=== PATIENT | male | born 1940 | race Caucasian/White ===

== ENCOUNTER 2022-07-24 22:12 | Inpatient (IN) | payer MEDICARE ==
--- NOTE | 2022-07-24 22:31 | ED ---
General Adult HPI - General Chief complaint: Chest Pain Stated complaint: chest pain Time Seen by Provider: 07/24/22 22:23 Source: patient, EMS, RN notes reviewed Mode of arrival: EMS Limitations: no limitations - History of Present Illness Initial comments: 81-year-old male with past medical history of myocardial infarction and cardiac stent placement presents the emergency department via EMS with a chief complaint of chest pain. Patient reports chest pain that started at approximately 9 PM at dinnertime. Patient reports that he was eating beef tips at the time that the pain started. He describes the chest pain as a dull ache. It does not radiate anywhere else. It is not provoked with movement. He reports he took 3 nitroglycerin tabs prior to arrival which relieved his pain. She denies accompanying symptoms of diaphoresis, nausea, vomiting, shortness of breath, cough, dyspnea. Denies anticoagulant use - Related Data Allergies Allergy/AdvReac Type Severity Reaction Status Date / Time acetaminophen [From Vicodin] AdvReac Nausea & Verified 07/24/22 22:29 Vomiting codeine AdvReac Nausea & Verified 07/24/22 22:29 Vomiting hydrocodone [From Vicodin] AdvReac Nausea & Verified 07/24/22 22:29 Vomiting ibuprofen [From Motrin] AdvReac Nausea & Verified 07/24/22 22:29 Vomiting morphine AdvReac Nausea & Verified 07/24/22 22:29 Vomiting & Diarrhea propoxyphene [From Darvon] AdvReac Nausea & Verified 07/24/22 22:29 Vomiting Review of Systems ROS Statement: Those systems with pertinent positive or pertinent negative responses have been documented in the HPI. ROS Other: All systems not noted in ROS Statement are negative. Past Medical History Past Medical History: Coronary Artery Disease (CAD), Chest Pain / Angina History of Any Multi-Drug Resistant Organisms: None Reported Past Surgical History: Heart Catheterization With Stent Additional Past Surgical History / Comment(s): hx of 5 stents placed Past Psychological History: No Psychological Hx Reported Smoking Status: Former smoker Past Alcohol Use History: Daily Past Drug Use History: None Reported - Past Family History Mother History Unknown: Yes Father Family Medical History: No Reported History General Exam - General Exam Comments Initial Comments: General: Alert, in no acute distress Head: atraumatic normocephalic. Eyes PERRL, EOMI intact, mucous membranes moist Respiratory: Lungs clear to auscultation bilaterally Cardiovascular: Heart rate regular rate and rhythm Abdominal: Soft without guarding or rebound Extremities: Normal inspection with full range of motion and normal capillary refill Neuroogic: alert and oriented 3, CN II-XII intact, able to ambulate with steady gait Skin: warm dry and intact with normal color Limitations: no limitations Course Vital Signs 07/24/22 07/24/22 07/25/22 22:15 23:23 01:35 Temperature 98.8 F Pulse Rate 87 82 72 Respiratory 18 18 18 Rate Blood Pressure 162/85 171/82 125/67 O2 Sat by Pulse 99 99 97 Oximetry - Reevaluation(s) Reevaluation #1: 07/24/22 23:35 Should reevaluated. Patient reports chest pain that is tight at rest. Repeat EKG ordered. Reevaluation #2: 07/24/22 23:44 Interpreted the following: BP EKG performed at 23:36 rate 84 bpm normal sinus rhythm with short AR interval AR interval 108, QRS duration 109, QT/QTc 367/408 Reevaluation #3: 07/25/22 00:30 Discuss with the [facility] who agrees and accepts the patient for admission EKG Findings - EKG Comments: EKG Findings:: Initial EKG performed at 22:36 79 bpm normal sinus rhythm AR interval 124, QRS duration 96, QT/QTc 367/402 Medical Decision Making - Medical Decision Making Was pt. sent in by a medical professional or institution ([facility], [facility], urgent care, hospital, or alf...) When possible be specific @ -[No] Did you speak to anyone other than the patient for history (EMS, parent, family, police, friend...)? What history was obtained from this source @ -[No] Did you review nursing and triage notes (agree or disagree)? Why? @ -[I reviewed and agree with nursing and triage notes] Were old charts reviewed (outside hosp., previous admission, EMS record, old EKG, old radiological studies, urgent care reports/EKG's, alf records)? Report findings @ -[No old charts were reviewed] Differential Diagnosis (chest pain, altered mental status, abdominal pain women, abdominal pain men, vaginal bleeding, weakness, fever, dyspnea, syncope, headache, dizziness, GI bleed, back pain, seizure, CVA, palpatations, mental health, musculoskeletal)? @ -[not applicable] EKG interpreted by me (3pts min.). @ -[As above] X-rays interpreted by me (1pt min.). @ No evidence for acute intrapleural process CT interpreted by me (1pt min.). @ -[None done] U/S interpreted by me (1pt. min.). @ -[None done] What testing was considered but not performed or refused? (CT, X-rays, U/S, labs)? Why? @ -[None] What meds were considered but not given or refused? Why? @ -[None] Did you discuss the management of the patient with other professionals (professionals i.e. , PA, [employer], lab, RT, psych nurse, protective services social worker, talent manager, teacher, police officer crime prevention, case folder)? Give summary @ -[No] Was smoking cessation discussed for >3mins.? @ -[No] Was critical care preformed (if so, how long)? @ -[No] Were there social determinants of health that impacted care today? How? (Homelessness, low income, unemployed, alcoholism, drug addiction, transportation, low edu. Level, literacy, decrease access to med. care, penitentiary, rehab)? @ -[No] Was there de-escalation of care discussed even if they declined (Discuss DNR or withdrawal of care, Hospice)? DNR status @ -[No] What co-morbidities impacted this encounter? (DM, HTN, Smoking, COPD, CAD, Cancer, CVA, ARF, Chemo, Hep., AIDS, mental health diagnosis, sleep apnea, morbid obesity)? @ -[None] Was patient admitted / discharged? Hospital course, mention meds given and route, prescriptions, significant lab abnormalities, going to OR and other pertinent info. @ -Admission. This is a 81-year-old male who presents to the emergency department with chest pain. Patient had a thorough history and physical exam performed on the ED. Heart rate regular rate and rhythm, lungs clear to auscultation bilaterally, abdomen soft and nontender. Upon initial history and physical patient reports no chest pain however particularly 1 hour i nto the course of the ED patient reports persistent chest pain that he is experiencing at rest. Patient had nitro which made it worse. Patient had lab work and imaging performed which was essentially unremarkable initial troponin and secondary troponin drawn were negative. Despite negative cardiac workup due to the nature of the patient's history and current symptoms patient will be admitted for further observation with consult to cardiology. Case discussed with GUSTABO Brewer who agrees with plan of care. Undiagnosed new problem with uncertain prognosis? @ -[No] Drug Therapy requiring intensive monitoring for toxicity (Heparin, Nitro, Insulin, Cardizem)? @ -[No] Were any procedures done? @ -[No] Diagnosis/symptom? @ -Chest Pain - Acute Coronary Syndrome Acute, or Chronic, or Acute on Chronic? @ -Acute Uncomplicated (without systemic symptoms) or Complicated (systemic symptoms)? @ -Uncomplicated Side effects of treatment? @ -[No] Exacerbation, Progression, or Severe Exacerbation? @ -[No] Poses a threat to life or bodily function? How? (Chest pain, USA, ID, pneumonia, PE, COPD, DKA, ARF, appy, cholecystitis, CVA, Diverticulitis, Homicidal, Suicidal, threat to staff... and all critical care pts) @ -High likelihood - Lab Data Result diagrams: 07/24/22 23:03 07/24/22 23:03 Lab Results 07/24/22 07/24/22 07/24/22 Range/Units 00:00 00:00 23:03 WBC 11.6 H 12.3 H (3.8-10.6) k/uL RBC 3.32 L 3.47 L (4.30-5.90) m/uL Hgb 11.5 L 11.8 L (13.0-17.5) gm/dL Hct 34.5 L 35.3 L (39.0-53.0) % MCV 103.9 H 101.6 H (80.0-100.0) fL MCH 34.7 34.0 (25.0-35.0) pg MCHC 33.4 33.4 (31.0-37.0) g/dL RDW 12.4 12.5 (11.5-15.5) % Plt Count 185 184 (150-450) k/uL MPV 8.7 9.0 Neutrophils % 85 84 % Lymphocytes % 8 7 % Monocytes % 6 7 % Eosinophils % 1 1 % Basophils % 0 0 % Neutrophils # 9.8 H 10.3 H (1.3-7.7) k/uL Lymphocytes # 0.9 L 0.8 L (1.0-4.8) k/uL Monocytes # 0.7 0.9 (0-1.0) k/uL Eosinophils # 0.1 0.2 (0-0.7) k/uL Basophils # 0.0 0.0 (0-0.2) k/uL Macrocytosis Slight PT 11.7 (9.0-12.0) sec INR 1.1 (<1.2) APTT 23.6 (22.0-30.0) sec Sodium (137-145) mmol/L Potassium (3.5-5.1) mmol/L Chloride (98-107) mmol/L Carbon Dioxide (22-30) mmol/L Anion Gap mmol/L BUN (9-20) mg/dL Creatinine (0.66-1.25) mg/dL Est GFR (CKD-EPI)AfAm (>60 ml/min/1.73 sqM) Est GFR (CKD-EPI)NonAf (>60 ml/min/1.73 sqM) Glucose (74-99) mg/dL Calcium (8.4-10.2) mg/dL Magnesium (1.6-2.3) mg/dL Total Bilirubin (0.2-1.3) mg/dL AST (17-59) U/L ALT (4-49) U/L Alkaline Phosphatase (38-126) U/L Troponin I (0.000-0.034) ng/mL Total Protein (6.3-8.2) g/dL Albumin (3.5-5.0) g/dL 07/24/22 07/24/22 07/24/22 Range/Units 23:03 23:03 23:03 WBC (3.8-10.6) k/uL RBC (4.30-5.90) m/uL Hgb (13.0-17.5) gm/dL Hct (39.0-53.0) % MCV (80.0-100.0) fL MCH (25.0-35.0) pg MCHC (31.0-37.0) g/dL RDW (11.5-15.5) % Plt Count (150-450) k/uL MPV Neutrophils % % Lymphocytes % % Monocytes % % Eosinophils % % Basophils % % Neutrophils # (1.3-7.7) k/uL Lymphocytes # (1.0-4.8) k/uL Monocytes # (0-1.0) k/uL Eosinophils # (0-0.7) k/uL Basophils # (0-0.2) k/uL Macrocytosis PT 11.7 (9.0-12.0) sec INR 1.1 (<1.2) APTT 21.0 L (22.0-30.0) sec Sodium 135 L (137-145) mmol/L Potassium 3.5 (3.5-5.1) mmol/L Chloride 106 (98-107) mmol/L Carbon Dioxide 23 (22-30) mmol/L Anion Gap 6 mmol/L BUN 15 (9-20) mg/dL Creatinine 0.96 (0.66-1.25) mg/dL Est GFR (CKD-EPI)AfAm 87 (>60 ml/min/1.73 sqM) Est GFR (CKD-EPI)NonAf 75 (>60 ml/min/1.73 sqM) Glucose 126 H (74-99) mg/dL Calcium 8.4 (8.4-10.2) mg/dL Magnesium 1.7 (1.6-2.3) mg/dL Total Bilirubin 0.6 (0.2-1.3) mg/dL AST 23 (17-59) U/L ALT 20 (4-49) U/L Alkaline Phosphatase 60 (38-126) U/L Troponin I <0.012 (0.000-0.034) ng/mL Total Protein 6.0 L (6.3-8.2) g/dL Albumin 3.6 (3.5-5.0) g/dL 07/25/22 Range/Units 00:21 WBC (3.8-10.6) k/uL RBC (4.30-5.90) m/uL Hgb (13.0-17.5) gm/dL Hct (39.0-53.0) % MCV (80.0-100.0) fL MCH (25.0-35.0) pg MCHC (31.0-37.0) g/dL RDW (11.5-15.5) % Plt Count (150-450) k/uL MPV Neutrophils % % Lymphocytes % % Monocytes % % Eosinophils % % Basophils % % Neutrophils # (1.3-7.7) k/uL Lymphocytes # (1.0-4.8) k/uL Monocytes # (0-1.0) k/uL Eosinophils # (0-0.7) k/uL Basophils # (0-0.2) k/uL Macrocytosis PT (9.0-12.0) sec INR (<1.2) APTT (22.0-30.0) sec Sodium (137-145) mmol/L Potassium (3.5-5.1) mmol/L Chloride (98-107) mmol/L Carbon Dioxide (22-30) mmol/L Anion Gap mmol/L BUN (9-20) mg/dL Creatinine (0.66-1.25) mg/dL Est GFR (CKD-EPI)AfAm (>60 ml/min/1.73 sqM) Est GFR (CKD-EPI)NonAf (>60 ml/min/1.73 sqM) Glucose (74-99) mg/dL Calcium (8.4-10.2) mg/dL Magnesium (1.6-2.3) mg/dL Total Bilirubin (0.2-1.3) mg/dL AST (17-59) U/L ALT (4-49) U/L Alkaline Phosphatase (38-126) U/L Troponin I <0.012 (0.000-0.034) ng/mL Total Protein (6.3-8.2) g/dL Albumin (3.5-5.0) g/dL Disposition Clinical Impression: Chest pain Disposition: ADMITTED IP TO THIS [facility] Condition: Fair Is patient prescribed a controlled substance at d/c from ED?: No Time of Disposition: 00:15
[2022-07-24 23:20] LABS: Basophils % (A) 0 %; Eosinophils # (A) 0.2 k/uL (0-0.7); Eosinophils % (A) 1 %; HCT 35.3 % (39.0-53.0); HGB 11.8 gm/dL (13.0-17.5); Lymphocytes # (A) 0.8 k/uL (1.0-4.8); Lymphocytes % (A) 7 %; MCHC 33.4 g/dL (31.0-37.0); MCV 101.6 fL (80.0-100.0); Monocytes # (A) 0.9 k/uL (0-1.0); Monocytes % (A) 7 %; Neutrophils # (A) 10.3 k/uL (1.3-7.7); Neutrophils % (A) 84 %; Platelet Count 184 k/uL (150-450); RBC 3.47 m/uL (4.30-5.90); RDW 12.5 % (11.5-15.5); WBC 12.3 k/uL (3.8-10.6)
[2022-07-24 23:24] LABS: INR 1.1 (<1.2); Prothrombin Time 11.7 sec (9.0-12.0)
[2022-07-24 23:25] LABS: ALT 20 U/L (4-49); AST 23 U/L (17-59); African American GFR (CKD) 87 (>60 ml/min/1.73 sqM); Albumin 3.6 g/dL (3.5-5.0); Alkaline Phosphatase 60 U/L (38-126); Anion Gap 6 mmol/L; Blood Urea Nitrogen 15 mg/dL (9-20); Calcium 8.4 mg/dL (8.4-10.2); Carbon Dioxide 23 mmol/L (22-30); Chloride 106 mmol/L (98-107); Glucose 126 mg/dL (74-99); Magnesium 1.7 mg/dL (1.6-2.3); Non-African American GFR(CKD) 75 (>60 ml/min/1.73 sqM); Potassium 3.5 mmol/L (3.5-5.1); Sodium 135 mmol/L (137-145); Total Bilirubin 0.6 mg/dL (0.2-1.3)
[2022-07-24] MEDS ORDERED: ASPIRIN 325 MG TAB PO STA (23:34)
[2022-07-24] MEDS ORDERED: NITROGLYCERIN OINT 1 INCH/GM PACKET TOPICAL STA (23:35)
[2022-07-24] MEDS ORDERED: NITROGLYCERIN SL TABS 0.4 MG TAB SUBLINGUAL PRN (23:41)
[2022-07-24] MEDS ORDERED: HEPARIN SODIUM 1,000 UN/ML (10ML VL) IV PRN (23:45)
[2022-07-24] MEDS ORDERED: HEPARIN SOD,PORK IN 0.45% NACL 25,000 UNIT in 0.45% NACL 1 250ML.BAG IV SCH (23:45)
[2022-07-24] MEDS ORDERED: HEPARIN SODIUM 1,000 UN/ML (10ML VL) IV ONE (23:45)
--- NOTE | 2022-07-25 00:29 | XR ---
EXAM: XR Chest, 2 Views CLINICAL HISTORY: ITS.REASON XR Reason: chest pain TECHNIQUE: Frontal and lateral views of the chest. COMPARISON: No relevant prior studies available. FINDINGS: Lungs: No consolidation. No overt edema. Pleural space: No pleural effusion. No pneumothorax. Heart: Unremarkable. No cardiomegaly. Bones/joints: Unremarkable. No fracture or malalignment. IMPRESSION: No acute cardiopulmonary abnormality.
[2022-07-25] MEDS ORDERED: NALOXONE 0.4 MG/ML 1 ML VIAL IV PRN (00:30)
[2022-07-25 01:17] LABS: Basophils % (A) 0 %; Eosinophils # (A) 0.1 k/uL (0-0.7); Eosinophils % (A) 1 %; HCT 34.5 % (39.0-53.0); HGB 11.5 gm/dL (13.0-17.5); Lymphocytes # (A) 0.9 k/uL (1.0-4.8); Lymphocytes % (A) 8 %; MCH 34.7 pg (25.0-35.0); MCHC 33.4 g/dL (31.0-37.0); MCV 103.9 fL (80.0-100.0); Macrocytosis Slight; Mean Platelet Volume 8.7; Monocytes # (A) 0.7 k/uL (0-1.0); Monocytes % (A) 6 %; Neutrophils # (A) 9.8 k/uL (1.3-7.7); Neutrophils % (A) 85 %; Platelet Count 185 k/uL (150-450); RBC 3.32 m/uL (4.30-5.90); RDW 12.4 % (11.5-15.5); WBC 11.6 k/uL (3.8-10.6)
[2022-07-25 01:31] LABS: INR 1.1 (<1.2); Partial Thromboplastin Time 23.6 sec (22.0-30.0); Prothrombin Time 11.7 sec (9.0-12.0)
[2022-07-25] MEDS: NITROGLYCERIN-D5W PMX 50 MG in DEXTROSE/WATER 1 250ML.BAG IV SCH (01:33)
[2022-07-25] MEDS: ALPRAZolam 0.5 MG TAB PO PRN ×2 (02:54→20:12)
[2022-07-25] MEDS ORDERED: HEPARIN SODIUM,PORCINE 2,500 UNIT in SODIUM CHLORIDE 0.9% 250 ML IRRIGATION PRN (07:00)
[2022-07-25] MEDS ORDERED: HEPARIN SODIUM,PORCINE 10,000 UNIT in SODIUM CHLORIDE 0.9% 1,000 ML IRRIGATION PRN (07:00)
[2022-07-25 07:01] LABS: INR 1.2 (<1.2); Partial Thromboplastin Time 54.9 sec (22.0-30.0); Prothrombin Time 12.2 sec (9.0-12.0)
[2022-07-25 07:02] LABS: Basophils % (A) 0 %; Eosinophils # (A) 0.2 k/uL (0-0.7); Eosinophils % (A) 2 %; HCT 34.2 % (39.0-53.0); HGB 11.3 gm/dL (13.0-17.5); Lymphocytes # (A) 1.5 k/uL (1.0-4.8); Lymphocytes % (A) 15 %; MCH 33.8 pg (25.0-35.0); MCHC 33.1 g/dL (31.0-37.0); MCV 102.4 fL (80.0-100.0); Macrocytosis Slight; Monocytes # (A) 0.9 k/uL (0-1.0); Monocytes % (A) 9 %; Neutrophils % (A) 72 %; Platelet Count 170 k/uL (150-450); RBC 3.34 m/uL (4.30-5.90); RDW 12.8 % (11.5-15.5); WBC 9.7 k/uL (3.8-10.6)
[2022-07-25] MEDS ORDERED: ATORVASTATIN 80 MG TAB PO STA (07:47)
[2022-07-25] MEDS ORDERED: ASPIRIN 325 MG TAB PO STA (07:47)
[2022-07-25] MEDS ORDERED: ALPRAZolam 0.25 MG TAB PO PRN (07:47)
--- NOTE | 2022-07-25 07:50 | P.CRDCN ---
History of Present Illness Consult date: 07/25/22 Chief complaint: Chest pain History of present illness: The patient is a pleasant 81-year-old gentleman with a past medical history significant for CAD was prior stenting multiple times for performed in [place] with unknown details at this point as well as hypertension and dyslipidemia presented to the emergency department complaining of chest discomfort. He was in his usual state of health until yesterday when he was sitting at home and ea ting his dinner and started experiencing discomfort in the middle of the chest as a tightness across the chest with radiation to the jaw. He was experiencing also shortness of breath. No sweating. No dizziness or lightheadedness and no feeling of heart racing or fluttering and no presyncope or syncope. He decided to come to the emergency department where the chest discomfort continues and he was started on nitro drip with improvement. Currently he is experiencing mild ongoing chest discomfort and currently he is on nitro drip. He underwent further workup including EKG showing sinus mechanism was no significant ST or T- wave abnormalities and also he underwent cardiac enzymes came in to be unremarkable. The hemoglobin is mildly low. The rest of the blood work came in to be unremarkable. The chest x-ray did not show any acute abnormalities The examination is remarkable for regular rhythm with a systolic murmur at the right upper sternal border and clear breathing sounds bilaterally and no lower extremity edema noted. He does have good right radial pulse Assessment Unstable angina. The patient continues to have ongoing chest discomfort CAD was prior stenting with unknown details with across the stent was performed 2 years ago Hypertension Dyslipidemia Plan Continue heparin and continue nitro drip Add aspirin to the current medical regimen Add beta jesus alberto to the current medical regimen Add lisinopril to the current medical regimen Obtain an echocardiogram was Doppler Proceed with coronary angiogram giving the ongoing chest discomfort. Past Medical History Past Medical History: Coronary Artery Disease (CAD), Chest Pain / Angina History of Any Multi-Drug Resistant Organisms: None Reported Past Surgical History: Heart Catheterization With Stent Additional Past Surgical History / Comment(s): hx of 5 stents placed Date of Last Stent Placement:: 2019 Past Psychological History: No Psychological Hx Reported Smoking Status: Former smoker Past Alcohol Use History: Daily Past Drug Use History: None Reported - Past Family History Mother History Unknown: Yes Father Family Medical History: No Reported History Medications and Allergies Allergies Allergy/AdvReac Type Severity Reaction Status Date / Time acetaminophen [From Vicodin] AdvReac Nausea & Verified 07/24/22 22:29 Vomiting codeine AdvReac Nausea & Verified 07/24/22 22:29 Vomiting hydrocodone [From Vicodin] AdvReac Nausea & Verified 07/24/22 22:29 Vomiting ibuprofen [From Motrin] AdvReac Nausea & Verified 07/24/22 22:29 Vomiting morphine AdvReac Nausea & Verified 07/24/22 22:29 Vomiting & Diarrhea propoxyphene [From Darvon] AdvReac Nausea & Verified 07/24/22 22:29 Vomiting Physical Exam Vitals: Vital Signs Temp Pulse Pulse Resp BP BP Pulse Ox 07/25/22 04:00 98.9 F 67 16 126/64 98 07/25/22 03:14 75 18 07/25/22 02:06 98.1 F 75 18 153/77 99 07/25/22 01:35 72 18 125/67 97 07/24/22 23:23 82 18 171/82 99 07/24/22 22:15 98.8 F 87 18 162/85 99 Intake and Output 07/24/22 07/25/22 07/25/22 22:59 06:59 14:59 Intake Total 2.375 Output Total 925 Balance -922.625 Intake: Intake, IV Titration 2.375 Amount Nitroglycerin-D5w Pmx 50 2.375 mg In Dextrose/Water 1 250ml.bag @ 5 MCG/MIN 1.5 mls/hr IV .Q24H [facility] Rx#: [id number] Output: Urine 925 Other: # Voids 1 Weight 74.843 kg 74.843 kg Results 07/25/22 06:35 07/24/22 23:03 Cardiac Enzymes 07/24/22 07/24/22 07/25/22 Range/Units 23:03 23:03 00:21 AST 23 (17-59) U/L Troponin I <0.012 <0.012 (0.000-0.034) ng/mL Coagulation 07/24/22 07/24/22 07/25/22 Range/Units 00:00 23:03 06:35 PT 11.7 11.7 12.2 H (9.0-12.0) sec APTT 23.6 21.0 L 54.9 H (22.0-30.0) sec CBC 07/24/22 07/24/22 07/25/22 Range/Units 00:00 23:03 06:35 WBC 11.6 H 12.3 H 9.7 (3.8-10.6) k/uL RBC 3.32 L 3.47 L 3.34 L (4.30-5.90) m/uL Hgb 11.5 L 11.8 L 11.3 L (13.0-17.5) gm/dL Hct 34.5 L 35.3 L 34.2 L (39.0-53.0) % Plt Count 185 184 170 (150-450) k/uL Comprehensive Metabolic Panel 07/24/22 Range/Units 23:03 Sodium 135 L (137-145) mmol/L Potassium 3.5 (3.5-5.1) mmol/L Chloride 106 (98-107) mmol/L Carbon Dioxide 23 (22-30) mmol/L BUN 15 (9-20) mg/dL Creatinine 0.96 (0.66-1.25) mg/dL Glucose 126 H (74-99) mg/dL Calcium 8.4 (8.4-10.2) mg/dL AST 23 (17-59) U/L ALT 20 (4-49) U/L Alkaline Phosphatase 60 (38-126) U/L Total Protein 6.0 L (6.3-8.2) g/dL Albumin 3.6 (3.5-5.0) g/dL Current Medications Generic Name Dose Route Start Last Admin Trade Name Freq PRN Reason Stop Dose Admin Alprazolam 0.5 mg 07/25/22 02:43 07/25/22 02:54 Alprazolam 0.5 Mg Tab PO 0.5 mg DAILY PRN Administration Anxiety Heparin Sodium (Porcine) 0 unit 07/24/22 23:45 Heparin Sodium 1,000 Un/Ml (10ml Vl) IV PER PROTOCOL PRN Low PTT Protocol Heparin Sodium/Sodium Chloride 250 mls @ 8.981 mls/hr 07/24/22 23:45 07/25/22 00:37 25,000 unit/ Sodium Chloride IV 12 units/kg/hr .Q24H [facility] 8.981 mls/hr Administration Protocol 12 UNITS/KG/HR Sodium Chloride 1,000 mls @ 75 mls/hr 07/25/22 00:45 Saline 0.9% IV .[id number] [facility] Nitroglycerin/Dextrose 50 mg/ 250 mls @ 1.5 mls/hr 07/25/22 01:00 07/25/22 03:08 IV Solution IV 10 mcg/min .Q24H MARTHA 3 mls/hr Titration Protocol 5 MCG/MIN Naloxone HCl 0.2 mg 07/25/22 00:30 Naloxone 0.4 Mg/Ml 1 Ml Vial IV Q2M PRN Opioid Reversal Nitroglycerin 0.4 mg 07/24/22 23:41 07/24/22 23:49 Nitroglycerin Sl Tabs 0.4 Mg Tab SUBLINGUAL 0.4 mg Q5M PRN Administration Chest Pain Intake and Output 07/24/22 07/25/22 07/25/22 22:59 06:59 14:59 Intake Total 2.375 Output Total 925 Balance -922.625 Intake: Intake, IV Titration 2.375 Amount Nitroglycerin-D5w Pmx 50 2.375 mg In Dextrose/Water 1 250ml.bag @ 5 MCG/MIN 1.5 mls/hr IV .Q24H [facility] Rx#: [id number] Output: Urine 925 Other: # Voids 1 Weight 74.843 kg 74.843 kg 07/25/22 06:35 07/24/22 23:03
[2022-07-25] MEDS: METOPROLOL SUCCINATE (ER) 25 MG TAB.ER.24H PO SCH (09:24)
[2022-07-25] MEDS: ACETAMINOPHEN TAB 325 MG TAB PO PRN ×2 (09:25→14:15)
[2022-07-25] MEDS: SODIUM CHLORIDE 0.9% 1,000 ML IV SCH ×2 (09:30→19:18)
--- NOTE | 2022-07-25 10:28 | P.HPIM ---
History of Present Illness 81-year-old male with a known history of coronary artery disease multiple stents in the past in [place] came in with complaints of acute chest pain pressure-like sensation with radiation to the jaw without any diaphoresis. Chest pain nonpleuritic not associated with food. EKG did not show any acute ST-T wave changes troponins are negative. Patient has mild leukocytosis without any evidence of infection at this time REVIEW OF SYSTEMS: CONSTITUTIONAL: No fever, no malaise, no fatigue. HEENT: No recent visual problems or hearing problems. Denied any sore throat. CARDIOVASCULAR: No orthopnea, PND, no palpitations, no syncope. PULMONARY: No shortness of breath, no cough, no hemoptysis. GASTROINTESTINAL: No diarrhea, no nausea, no vomiting, no abdominal pain. NEUROLOGICAL: No headaches, no weakness, no numbness. HEMATOLOGICAL: Denies any bleeding or petechiae. GENITOURINARY: Denies any burning micturition, frequency, or urgency. MUSCULOSKELETAL/RHEUMATOLOGICAL: Denies any joint pain, swelling, or any muscle pain. ENDOCRINE: Denies any polyuria or polydipsia. The rest of the 14-point review of systems is negative. PHYSICAL EXAMINATION: GENERAL: The patient is alert and oriented x3, not in any acute distress. Well developed, well nourished. HEENT: Pupils are round and equally reacting to light. EOMI. No scleral icterus. No conjunctival pallor. Normocephalic, atraumatic. No pharyngeal erythema. No thyromegaly. CARDIOVASCULAR: S1 and S2 present. No murmurs, rubs, or gallops. PULMONARY: Chest is clear to auscultation, no wheezing or crackles. ABDOMEN: Soft, nontender, nondistended, normoactive bowel sounds. No palpable organomegaly. MUSCULOSKELETAL: No joint swelling or deformity. EXTREMITIES: No cyanosis, clubbing, or pedal edema. NEUROLOGICAL: Gross neurological examination did not reveal any focal deficits. SKIN: No rashes. Assessment and plan -Unstable angina: Patient will be continued on nitro drip, IV heparin patient will undergo cardiac catheterization today. Echocardiography will be obtained -Coronary artery disease with multiple stents in the past - hypertension - hyperlipemia -Leukocytosis reactive without any evidence of infection DVT prophylaxis: Patient on anticoagulation at this time Past Medical History Past Medical History: Coronary Artery Disease (CAD), Chest Pain / Angina History of Any Multi-Drug Resistant Organisms: None Reported Past Surgical History: Heart Catheterization With Stent Additional Past Surgical History / Comment(s): hx of 5 stents placed Date of Last Stent Placement:: 2019 Past Psychological History: No Psychological Hx Reported Smoking Status: Former smoker Past Alcohol Use History: Daily Past Drug Use History: None Reported - Past Family History Mother History Unknown: Yes Father Family Medical History: No Reported History Medications and Allergies Allergies Allergy/AdvReac Type Severity Reaction Status Date / Time acetaminophen [From Vicodin] AdvReac Nausea & Verified 07/24/22 22:29 Vomiting codeine AdvReac Nausea & Verified 07/24/22 22:29 Vomiting hydrocodone [From Vicodin] AdvReac Nausea & Verified 07/24/22 22:29 Vomiting ibuprofen [From Motrin] AdvReac Nausea & Verified 07/24/22 22:29 Vomiting morphine AdvReac Nausea & Verified 07/24/22 22:29 Vomiting & Diarrhea propoxyphene [From Darvon] AdvReac Nausea & Verified 07/24/22 22:29 Vomiting Physical Exam Vitals: Vital Signs Temp Pulse Pulse Resp BP BP Pulse Ox 07/25/22 09:04 97 07/25/22 04:00 98.9 F 67 16 126/64 98 07/25/22 03:14 75 18 07/25/22 02:06 98.1 F 75 18 153/77 99 07/25/22 01:35 72 18 125/67 97 07/24/22 23:23 82 18 171/82 99 07/24/22 22:15 98.8 F 87 18 162/85 99 Intake and Output 07/24/22 07/25/22 07/25/22 22:59 06:59 14:59 Intake Total 2.375 Output Total 925 Balance -922.625 Intake: Intake, IV Titration 2.375 Amount Nitroglycerin-D5w Pmx 50 2.375 mg In Dextrose/Water 1 250ml.bag @ 5 MCG/MIN 1.5 mls/hr IV .Q24H [facility] Rx#: [id number] Output: Urine 925 Other: # Voids 1 Weight 74.843 kg 74.843 kg Results CBC & Chem 7: 07/25/22 06:35 07/24/22 23:03 Labs: Abnormal Lab Results - Last 24 Hours (Table) 07/24/22 07/24/22 07/24/22 Range/Units 00:00 23:03 23:03 WBC 11.6 H 12.3 H (3.8-10.6) k/uL RBC 3.32 L 3.47 L (4.30-5.90) m/uL Hgb 11.5 L 11.8 L (13.0-17.5) gm/dL Hct 34.5 L 35.3 L (39.0-53.0) % MCV 103.9 H 101.6 H (80.0-100.0) fL Neutrophils # 9.8 H 10.3 H (1.3-7.7) k/uL Lymphocytes # 0.9 L 0.8 L (1.0-4.8) k/uL PT (9.0-12.0) sec INR (<1.2) APTT 21.0 L (22.0-30.0) sec Sodium (137-145) mmol/L Glucose (74-99) mg/dL Total Protein (6.3-8.2) g/dL 07/24/22 07/25/22 07/25/22 Range/Units 23:03 06:35 06:35 WBC (3.8-10.6) k/uL RBC 3.34 L (4.30-5.90) m/uL Hgb 11.3 L (13.0-17.5) gm/dL Hct 34.2 L (39.0-53.0) % MCV 102.4 H (80.0-100.0) fL Neutrophils # (1.3-7.7) k/uL Lymphocytes # (1.0-4.8) k/uL PT 12.2 H (9.0-12.0) sec INR 1.2 H (<1.2) APTT 54.9 H (22.0-30.0) sec Sodium 135 L (137-145) mmol/L Glucose 126 H (74-99) mg/dL Total Protein 6.0 L (6.3-8.2) g/dL Thrombosis Risk Factor Assmnt - Choose All That Apply Any of the Below Risk Factors Present?: No
[2022-07-25] MEDS ORDERED: IV FLUID CONTINUATION 800 ML IV ONE (11:09)
[2022-07-25] MEDS ORDERED: LIDOCAINE 1% INJ 10MG/ML (5 ML VIAL-PF) SQ ONE (11:55)
[2022-07-25] MEDS ORDERED: VERAPAMIL SYRINGE (5 MG/10 ML) INTRAARTER ONE (11:57)
[2022-07-25] MEDS ORDERED: MIDAZOLAM 2 MG/2 ML VIAL IV ONE (11:57)
[2022-07-25] MEDS: HEPARIN SODIUM 1,000 UN/ML (10ML VL) IV ONE ×5 (12:09→13:08)
[2022-07-25] MEDS ORDERED: CLOPIDOGREL 75 MG TAB ONE (12:50)
[2022-07-25] MEDS ORDERED: niCARdipine 25 MG/10 ML VIAL ONE (12:52)
[2022-07-25] MEDS ORDERED: IOPAMIDOL-370 100ML BTL INJ ONE ×2 (12:57→13:53)
[2022-07-25] MEDS ORDERED: niCARdipine Syringe (1,000 mcg/10 mL) INTRACORON ONE (12:58)
[2022-07-25] MEDS ORDERED: CLOPIDOGREL 75 MG TAB PO ONE (12:58)
[2022-07-25] MEDS ORDERED: HYDROmorphone 0.5 MG/0.5 ML SYRINGE IVP ONE (12:58)
[2022-07-25] MEDS ORDERED: NITROGLYCERIN 1000MCG/10ML SYRINGE INTRACORON ONE (12:59)
[2022-07-25] MEDS ORDERED: RX INFO: IV CONTRAST WAS GIVEN 1 EACH MISC MISCELLANE PRN (13:47)
[2022-07-25] MEDS ORDERED: NITROGLYCERIN SL TABS 0.4 MG TAB SUBLINGUAL PRN (13:47)
[2022-07-25] MEDS ORDERED: MAG HYDROX/AL HYDROX/SIMETH 30 ML CUP PO PRN (13:47)
[2022-07-25] MEDS ORDERED: ATROPINE SULFATE 0.1 MG/ML 10ML SYRINGE IV PRN (13:47)
[2022-07-25] MEDS: RANOLAZINE 500 MG TAB.ER.12H PO SCH (20:54)
--- NOTE | 2022-07-25 21:45 | P.PCN ---
Date of Procedure: 07/25/22 Operative Findings: Cardiac catheterization and percutaneous coronary intervention Performing physician Tyree Guillory MD Procedure performed 1. Selective right and left coronary angiogram 2. Left heart catheterization 3. Successful stenting of the distal right coronary artery using 3.25 x 15 mm Xience SUSAN 4. Balloon angioplasty of the midright coronary artery 5. Adjunctive use of an intravascular ultrasound Indication This is a 81-year-old gentleman who sees a auditor supervisor in [place] with a past medical history significant for coronary artery disease with prior stenting of the RCA multiple times in the past. The details are unknown. He presented to the hospital complaining of chest discomfort and continues to have ongoing chest discomfort improved using icy nitroglycerin from about 8/10 in intensity to about 4/10 in intensity. In the light of ongoing chest discomfort and heart catheterization was advised Approach Right radial artery Complications None Level of sedation Moderate with sedation length of 2 hours Procedure description After obtaining an informed consent the patient was brought to the cardiac labor law professor. The right radial artery was cannulated using micropuncture technique, the micropuncture wire passed easily then I placed a 6 Kazakh sheath. I gave the patient verapamil intra-arterial and heparin intravenous with continuous ACT monitoring throughout the procedure. Selective right and left coronary angiogram performed using JR4 and JL 3.5 catheters and left heart catheterization was performed using the JR4 catheter which crossed the aortic valve then we did pull back across the valve. After that I did intervene on the right coronary artery. The procedure was completed was no complication Selective coronary angiogram The RCA There is a large caliber vessel and a dominant vessel. The RCA appeared to be subtotally occluded in the midportion with multiple layers of stent identified. The RCA fills by antegrade as well as its fills by collaterals from the left coronary system. As a matter of fact there is competitive flow in the distal RCA was identified from antegrade and retrograde flow. The left main Is a large caliber vessel and appears to be angiographically normal. Bifurcates into an LCx and LAD The LCx Large caliber vessel and codominant vessel. The LCx appeared to have mild diffuse disease only. Distally gives collateral to the right coronary artery. Proximally gives rises into an OM which works as a ramus intermedius and appears to have mild disease only. The LAD Large caliber vessel. The LAD has mild to moderate diffuse disease with no high-grade stenosis was identified. Also collateral identified from the septal machine operator hop picker feeling the distal right coronary artery. Hemodynamic The LVEDP was 8 mmHg was no significant gradient across aortic valve PCI of the RCA Anticoagulation was initiated using heparin with careful and continuous monitoring of the ACT throughout the procedure. Subsequently I attempted engaging the right coronary artery using an AL 0.75 guiding catheter but I was unable to engage the right coronary artery using the L.75 guiding catheter and at that point I decided to change the guide into JR4 guiding catheter. With a JR4 guiding catheter I was able to barely engage the right coronary artery. Please note that the patient does have right subclavian tortuosity and manipulating the guide was extremely challenging. With a barely engage the right coronary artery using JR4 catheter I did attempt wire the right coronary artery using whisper wire. I had difficulty crossing the lesion using the whisper J-wire but I was able to cross it using the wire with the backup support of super cross catheter at 45 tip angle. After that the wire was advanced to the distal right coronary artery. Knowing multiple layers of stents in the mid right coronary artery and knowing that advancing standard balloon would be very challenging I started using 1.5 mm x 15 mm balloon and I did balloon angioplasty of the RCA in the distal and mid and proximal portion. I had a hard time identifying if the balloon is fully inflated or not. Subsequently I was able to advance to a millimeter balloon and I did again balloon angioplasty of the distal and mid and proximal RCA using the 2 mm balloon. At that point I advanced an intravascular ultrasound to the right coronary artery and I was able to advance it only to the proximal right coronary artery which showed a diameter around 3.5-4 mm. I decided to go ahead now and use bigger balloon which was 2.5 mm x 20 noncompliant balloon. After that they did balloon angioplasty of the right coronary artery distally and in the midportion and proximally using the 2.5 x 20 mm noncompliant balloon. The following angiogram showed reasonable angiographic results with DAGOBERTO-3 flow in the right coronary artery. But subsequent angiogram after the wire was pulled out showed no flow in the right coronary artery. At that point I decided to wire the right coronary artery again using the whisper wire. I decided to do balloon angioplasty again using the 2.5 mm balloon but unfortunately I was unable to advance the balloon over the whisper wire. I did use a guide liner and with adjunctive use of guidelines that I was unable to advance a wire so I decided to use a dacia wire. I wire the LAD coronary artery using a running 0 wire in addition to the whisper wire. I did balloon angioplasty again for the proximal and mid and distal right coronary artery. An angiogram was performed and showed very tight lesion involving the distal right coronary artery which I decided to stent. I deployed a 3.25 x 15 mm stent where the stent was positioned under fluoroscopy guidance and the stent was deployed under 12 alexis for 20 seconds. The following angiogram showed reasonable angiographic results in the proximal and distal right coronary artery but the mid right coronary artery which she is the area of in-stent appeared to be hazy. At that point with the limitation of contrast and the imitation of radiation and with the patient being asymptomatic with no EKG changes we decided to stop it. The procedure was completed with no complication Conclusion 1. Subtotally occluded right coronary artery which is in-stent occlusion 2. PCI of the RCA was performed with a stenting of the distal portion and balloon angioplasty of the midportion for the in-stent segment was performed. I was able to achieve DAGOBERTO II flow in the right coronary artery due to residual stenosis involving the RCA in the mid segment/in-stent segment 3. Mild to moderate nonobstructive disease involving the left coronary system 4. Normal left-sided filling pressure Postprocedure management Continue dual antiplatelet therapy Consider adding oral anticoagulation Consider PCI of the RCA using either atherectomy or lithotripsy if the patient remains symptomatic.
[2022-07-25] MEDS: ZOLPIDEM 5 MG TAB PO PRN (21:51)
[2022-07-26] MEDS: NITROGLYCERIN-D5W PMX 50 MG in DEXTROSE/WATER 1 250ML.BAG IV SCH ×2 (02:41→20:26)
[2022-07-26] MEDS: LEVOTHYROXINE 100 MCG TAB PO SCH (06:10)
[2022-07-26] MEDS: SODIUM CHLORIDE 0.9% 1,000 ML IV SCH ×2 (06:10→17:21)
[2022-07-26 08:44] LABS: African American GFR (CKD) 87 (>60 ml/min/1.73 sqM); Non-African American GFR(CKD) 75 (>60 ml/min/1.73 sqM)
[2022-07-26] MEDS ORDERED: NON FORMULARY DRUG (Ramipril [Ramipril] 10 MG Capsule) PO SCH (09:00)
[2022-07-26] MEDS: MIRTAZAPINE 15 MG TAB PO SCH (09:43)
[2022-07-26] MEDS: ATORVASTATIN 80 MG TAB PO SCH (09:43)
[2022-07-26] MEDS: METOPROLOL SUCCINATE (ER) 25 MG TAB.ER.24H PO SCH (09:44)
[2022-07-26] MEDS: CLOPIDOGREL 75 MG TAB PO SCH (09:44)
[2022-07-26] MEDS: RANOLAZINE 500 MG TAB.ER.12H PO SCH ×2 (09:44→20:21)
[2022-07-26] MEDS: ISOSORBIDE MONONITRATE ER 30 MG TAB.ER.24H PO SCH (09:48)
[2022-07-26 11:44] LABS: Anion Gap 6 mmol/L; Blood Urea Nitrogen 11 mg/dL (9-20); Calcium 7.8 mg/dL (8.4-10.2); Carbon Dioxide 22 mmol/L (22-30); Chloride 110 mmol/L (98-107); Glucose 100 mg/dL (74-99); Sodium 138 mmol/L (137-145)
--- NOTE | 2022-07-26 12:27 | P.PN ---
Subjective Progress Note Date: 07/26/22 The patient is a pleasant 81-year-old gentleman with a past medical history significant for CAD was prior stenting multiple times for performed in [place] with unknown details at this point as well as hypertension and dyslipidemia presented to the emergency department complaining of chest discomfort. He was in his usual state of health until yesterday when he was sitting at home and eating his dinner and started experiencing discomfort in the middle of the chest as a tightness across the chest with radiation to the jaw. He was experiencing also shortness of breath. No sweating. No dizziness or lightheadedness and no feeling of heart racing or fluttering and no presyncope or syncope. He decided to come to the emergency department where the chest discomfort continues and he was started on nitro drip with improvement. Currently he is experiencing mild ongoing chest discomfort and currently he is on nitro drip. He underwent further workup including EKG showing sinus mechanism was no significant ST or T- wave abnormalities and also he underwent cardiac enzymes came in to be unremarkable. The hemoglobin is mildly low. The rest of the blood work came in to be unremarkable. The chest x-ray did not show any acute abnormalities 07/26 Yesterday, patient underwent cardiac catheterization with Dr. Guillory which revealed subtotally occluded right coronary artery which is in-stent occlusion. PCI of the RCA performed with a stenting of the distal portion and balloon angioplasty of the midportion for the in-stent segment performed. Mild to moderate nonobstructive disease involving left coronary system. Normal left sided filling pressures. Plan is to continue dual antiplatelet therapy, consider adding oral anticoagulation and consider PCI of the RCA using either atherectomy or lithotripsy if the patient remains symptomatic. Patient denies having any pain at this time. He is on nitroglycerin drip. Blood pressure 137/72, heart rate 62, blood pressure 95% on room air. Echocardiogram has been obtained and report is pending. The examination is remarkable for regular rhythm with a systolic murmur at the right upper sternal border and clear breathing sounds bilaterally and no lower extremity edema noted. Assessment Unstable angina. See cardiac cath report CAD was prior stenting with unknown details with across the stent was performed 2 years ago Hypertension Dyslipidemia Plan Discontinue nitroglycerin drip and start patient on Imdur 30 mg daily If patient tolerates well, may increase him to order twice daily tomorrow Monitor blood pressure and heart rate closely Continue patient on aspirin 81 mg daily, Lipitor 80 mg daily, Plavix 75 mg daily, lisinopril 2.5 mg daily, Toprol-XL 25 mg daily, Ranexa 500 mg every 12 hours Obtain an echocardiogram report. Nurse practitioner note has been reviewed, I agree with the documented findings and plan of care. Patient was seen and examined. Objective - Vital Signs Vital signs: Vital Signs Temp 98.3 F 07/26/22 08:00 Pulse 64 07/26/22 08:00 Resp 18 07/26/22 08:00 BP 137/72 07/26/22 08:00 Pulse Ox 95 07/26/22 08:00 FiO2 Intake & Output 07/25/22 07/26/22 07/26/22 18:59 06:59 18:59 Intake Total 1249.781 Output Total 800 Balance 1249.781 -800 Intake: IV 600 Intake, IV Titration 529.781 Amount Heparin Sod,Pork in 0.45% 79.781 NaCl 25,000 unit In 0.45 % NaCl 1 250ml.bag @ 12 UNITS/KG/HR 8.981 mls/hr IV .Q24H MARTHA Rx#: [id number] Sodium Chloride 0.9% 1, 450 000 ml @ 75 mls/hr IV . [id number] MARTHA Rx#:[id number] Oral 120 Output: Urine 800 Other: # Voids 2 1 - Labs CBC & Chem 7: 07/25/22 06:35 07/26/22 07:37
[2022-07-26 13:02] VITALS: BMI 25.8
--- NOTE | 2022-07-26 13:08 | CA ---
Transthoracic Echo Report Name: Rad Presley Age: 81 Gender: M : 1940 Exam Date: 07/26/2022 08:03 Exam Location: [facility] Ht (in): 67 Wt (lb): 165 Ordering Physician: Tyree Guillory MD ([id number]) Attending/Referring Phys: Chan Ramos MD Cue Worker Evelyne Mitchell [facility] Procedure CPT: Indications: Chest Pain Cardiac Hx: Technical Quality: Fair Contrast 1: Total Dose (mL): Contrast 2: Total Dose (mL): MEASUREMENTS (Male / Female) Normal Values 2D ECHO LV Diastolic Diameter PLAX 4.7 cm 4.2 - 5.9 / 3.9 - 5.3 cm LV Systolic Diameter PLAX 3.2 cm IVS Diastolic Thickness 0.7 cm 0.6 - 1.0 / 0.6 - 0.9 cm LVPW Diastolic Thickness 1.0 cm 0.6 - 1.0 / 0.6 - 0.9 cm LV Relative Wall Thickness 0.4 RV Internal Dim ED PLAX 2.8 cm M-MODE Aortic Root Diameter MM 2.8 cm LA Systolic Diameter MM 3.3 cm LA Ao Ratio MM 1.2 AV Cusp Separation MM 1.9 cm DOPPLER AV Peak Velocity 114.3 cm/s AV Peak Gradient 5.2 mmHg AV Mean Velocity 81.5 cm/s AV Mean Gradient 3.0 mmHg AV Velocity Time Integral 24.5 cm LVOT Peak Velocity 107.5 cm/s LVOT Peak Gradient 4.6 mmHg LVOT Velocity Time Integral 26.8 cm Mitral E Point Velocity 80.5 cm/s Mitral A Point Velocity 94.4 cm/s Mitral E to A Ratio 0.9 MV Deceleration Time 215.3 ms LV E' Lateral Velocity 7.1 cm/s Mitral E to LV E' Lateral Ratio 11.4 LV E' Septal Velocity 7.1 cm/s Mitral E to LV E' Septal Ratio 11.4 TR Peak Velocity 214.6 cm/s TR Peak Gradient 18.4 mmHg Right Atrial Pressure 15.0 mmHg Pulmonary Artery Systolic Pressu 33.4 mmHg Right Ventricular Systolic Press 33.4 mmHg FINDINGS Left Ventricle Normal Left ventricular size, wall thickness, systolic function with no obvious regional wall motion abnormalities. Left ventricular ejection fraction is estimated at 55-60%. Right Ventricle Normal right ventricular size and function. Right Atrium Normal right atrial size. Left Atrium Mild left atrial dilatation. Mitral Valve Structurally normal mitral valve. Mild mitral regurgitation. Aortic Valve Trileaflet aortic valve. Trace aortic regurgitation. Tricuspid Valve Structurally normal tricuspid valve. Trace tricuspid regurgitation. Pulmonic Valve Structurally normal pulmonic valve. Trace pulmonic regurgitation. Pericardium Normal pericardium. Aorta Mild aortic dilatation at the level of the sinuses of valsalva (root). Normal size proximal ascending aorta. CONCLUSIONS Left ventricular ejection fraction 55-60% Mild mitral regurgitation RVSP 33 Trace tricuspid regurgitation Aortic root measuring 3.9 cm Previewed by: Dr. Cristian Meade DO (Electronically Signed) Final Date: 26 July 2022 13:07
[2022-07-26] MEDS: ASPIRIN 81 MG PO SCH (13:32)
[2022-07-26 20:01] LABS: Glucose,Whole Blood 135 mg/dL (70-110)
[2022-07-26] MEDS: ALPRAZolam 0.5 MG TAB PO PRN (20:21)
[2022-07-26] MEDS: ZOLPIDEM 5 MG TAB PO PRN (21:23)
[2022-07-27] MEDS: SODIUM CHLORIDE 0.9% 1,000 ML IV SCH (02:13)
--- NOTE | 2022-07-27 03:43 | PN ---
PROGRESS NOTE DATE OF SERVICE: 07/26/2022 SUBJECTIVE: This is a 81-year-old gentleman, who was admitted with chest pain. He is slated to have further evaluation. No chest pain. No palpitations. No fever at this time. OBJECTIVE: VITAL SIGNS: Pulse is 58, blood pressure 119/68, respirations 16. CHEST: Clear to auscultation. CARDIOVASCULAR: S1, S2. ABDOMEN: Soft. NERVOUS SYSTEM: Nonfocal. LABORATORY DATA: Reviewed. ASSESSMENT: 1. Chest pain, possible unstable angina, status post cardiac catheterization and stenting. 2. Coronary artery disease, multiple stents in the past. 3. Hypertension. 4. Hyperlipidemia. RECOMMENDATIONS: Recommend to continue current medications, continue symptomatic treatment. The patient underwent a DIVISION SERVICE MANAGER. We will continue to monitor. Repeat labs. Closely follow with Cardiology. Increase ambulation. Further recommendations to follow. PAUL / LOLA: [id number] /
[2022-07-27] MEDS: LEVOTHYROXINE 100 MCG TAB PO SCH (06:01)
[2022-07-27 08:49] LABS: Basophils % (A) 0 %; Eosinophils # (A) 0.3 k/uL (0-0.7); Eosinophils % (A) 5 %; HCT 34.6 % (39.0-53.0); HGB 11.4 gm/dL (13.0-17.5); Lymphocytes # (A) 1.3 k/uL (1.0-4.8); Lymphocytes % (A) 22 %; MCH 34.4 pg (25.0-35.0); Macrocytosis Slight; Mean Platelet Volume 9.1; Monocytes # (A) 0.6 k/uL (0-1.0); Monocytes % (A) 10 %; Neutrophils # (A) 3.5 k/uL (1.3-7.7); Neutrophils % (A) 62 %; Platelet Count 179 k/uL (150-450); RBC 3.33 m/uL (4.30-5.90); RDW 12.4 % (11.5-15.5); WBC 5.8 k/uL (3.8-10.6)
[2022-07-27 08:50] VITALS: TEMP 98.3
[2022-07-27] MEDS: CLOPIDOGREL 75 MG TAB PO SCH (08:52)
[2022-07-27] MEDS: METOPROLOL SUCCINATE (ER) 25 MG TAB.ER.24H PO SCH (08:53)
[2022-07-27] MEDS: ASPIRIN 81 MG PO SCH (08:53)
[2022-07-27] MEDS: MIRTAZAPINE 15 MG TAB PO SCH (08:53)
[2022-07-27] MEDS: RANOLAZINE 500 MG TAB.ER.12H PO SCH (08:53)
[2022-07-27] MEDS: ATORVASTATIN 80 MG TAB PO SCH (08:53)
[2022-07-27] MEDS: ISOSORBIDE MONONITRATE ER 30 MG TAB.ER.24H PO SCH (08:53)
[2022-07-27 09:17] LABS: African American GFR (CKD) 73 (>60 ml/min/1.73 sqM); Anion Gap 6 mmol/L; Blood Urea Nitrogen 10 mg/dL (9-20); Calcium 8.1 mg/dL (8.4-10.2); Carbon Dioxide 25 mmol/L (22-30); Chloride 109 mmol/L (98-107); Glucose 131 mg/dL (74-99); Non-African American GFR(CKD) 63 (>60 ml/min/1.73 sqM); Sodium 140 mmol/L (137-145)
[2022-07-27 11:51] VITALS: BP 134/70; PULSE 50; RESP 16
--- NOTE | 2022-07-27 12:59 | P.PN ---
Subjective Progress Note Date: 07/27/22 The patient is a pleasant 81-year-old gentleman with a past medical history significant for CAD was prior stenting multiple times for performed in [place] with unknown details at this point as well as hypertension and dyslipidemia presented to the emergency department complaining of chest discomfort. He was in his usual state of health until yesterday when he was sitting at home and eating his dinner and started experiencing discomfort in the middle of the chest as a tightness across the chest with radiation to the jaw. He was experiencing also shortness of breath. No sweating. No dizziness or lightheadedness and no feeling of heart racing or fluttering and no presyncope or syncope. He decided to come to the emergency department where the chest discomfort continues and he was started on nitro drip with improvement. Currently he is experiencing mild ongoing chest discomfort and currently he is on nitro drip. He underwent further workup including EKG showing sinus mechanism was no significant ST or T- wave abnormalities and also he underwent cardiac enzymes came in to be unremarkable. The hemoglobin is mildly low. The rest of the blood work came in to be unremarkable. The chest x-ray did not show any acute abnormalities 07/26 Yesterday, patient underwent cardiac catheterization with Dr. Guillory which revealed subtotally occluded right coronary artery which is in-stent occlusion. PCI of the RCA performed with a stenting of the distal portion and balloon angioplasty of the midportion for the in-stent segment performed. Mild to moderate nonobstructive disease involving left coronary system. Normal left sided filling pressures. Plan is to continue dual antiplatelet therapy, consider adding oral anticoagulation and consider PCI of the RCA using either atherectomy or lithotripsy if the patient remains symptomatic. Patient denies having any pain at this time. He is on nitroglycerin drip. Blood pressure 137/72, heart rate 62, blood pressure 95% on room air. Echocardiogram has been obtained and report is pending. 07/27 Patient is seen today in follow-up. He has been able to ambulate in the juan without chest pain, shortness of breath, lightheadedness or dizziness. His blood pressure has been stable at 134/70 heart rate has been running in the 50s. Repeat blood work reveals hemoglobin 11.4. Creatinine 1.11. Echocardiogram reveals EF 5560 percent with mild mitral regurgitation, RVSP 33, trace tricuspid regurgitation, aortic root measuring 3.9 cm. Discussed plan with both patient and his son. The examination is remarkable for regular rhythm with a systolic murmur at the right upper sternal border and clear breathing sounds bilaterally and no lower extremity edema noted. Assessment Unstable angina. See cardiac cath report CAD was prior stenting with unknown details with across the stent was performed 2 years ago Hypertension Dyslipidemia Plan Increase frequency of Imdur 30 mg 2 twice daily Continue patient on aspirin 81 mg daily, Lipitor 80 mg daily, Plavix 75 mg daily, lisinopril 2.5 mg daily, Toprol-XL 25 mg daily, Ranexa 500 mg every 12 hours Patient is cleared from cardiology for discharge home. Patient may follow-up with Dr. Guillory in the office in one week Nurse practitioner note has been reviewed, I agree with the documented findings and plan of care. Patient was seen and examined. Objective - Vital Signs Vital signs: Vital Signs Temp 98.3 F 07/27/22 08:49 Pulse 59 L 07/27/22 08:49 Resp 18 07/27/22 08:49 BP 138/73 07/27/22 08:49 Pulse Ox 95 07/27/22 08:49 FiO2 Intake & Output 07/26/22 07/27/22 07/27/22 18:59 06:59 18:59 Intake Total 580 400 Output Total 250 Balance 330 400 Weight 74.843 kg Intake: IV 20 Invasive Line 2 20 Oral 560 400 Output: Urine 250 Other: Voiding Method Toilet # Voids 1 - Labs CBC & Chem 7: 07/27/22 08:08 07/27/22 08:08 Labs: Abnormal Lab Results - Last 24 Hours (Table) 07/26/22 07/26/22 07/27/22 Range/Units 07:37 19:59 08:08 RBC 3.33 L (4.30-5.90) m/uL Hgb 11.4 L (13.0-17.5) gm/dL Hct 34.6 L (39.0-53.0) % MCV 104.0 H (80.0-100.0) fL Chloride 110 H (98-107) mmol/L Glucose 100 H (74-99) mg/dL POC Glucose (mg/dL) 135 H (70-110) mg/dL Calcium 7.8 L (8.4-10.2) mg/dL 06/20/23 Range/Units 08:08 RBC (4.30-5.90) m/uL Hgb (13.0-17.5) gm/dL Hct (39.0-53.0) % MCV (80.0-100.0) fL Chloride 109 H (98-107) mmol/L Glucose 131 H (74-99) mg/dL POC Glucose (mg/dL) (70-110) mg/dL Calcium 8.1 L (8.4-10.2) mg/dL
[2022-07-27] MEDS ORDERED: ISOSORBIDE MONONITRATE ER 30 MG TAB.ER.24H PO SCH (21:00)
--- NOTE | 2022-07-28 06:51 | P.DS ---
Providers Date of admission: 07/26/22 19:49 Expected date of discharge: 07/27/22 Attending physician: Mirtha Valdez Consults: 07/25/22 00:31 Consult Physician Routine Consulting Provider: Jeannie Baca Consult Reason/Comments: chest pain, ACS Do you want consulting provider notified?: Yes 07/25/22 13:47 Consult Physician Routine Consulting Provider: Cardiology Noemy Consult Reason/Comments: Post Interventional Patient Do you want consulting provider notified?: Already Contacted Primary care physician: Physician Nonstaff Hospital Course: Final diagnosis -Unstable angina: cardiac catheterization with stenting -Coronary artery disease with multiple stents in the past - hypertension - hyperlipemia -Leukocytosis reactive without any evidence of infection -DVT prophylaxis Discharge disposition Patient is being discharged in a stable condition with guarded prognosis to home. Patient will follow-up with Dr. Garcia in the outpatient setting upon discharge. Patient is to follow-up with cardiology outpatient as scheduled. Total time taken is greater than 35 minutes. Hospital course This is a 81-year-old male who was recently admitted with chest pain underwent cardiac catheterization with stenting being closely monitored by cardiology. Medication adjustments being made and patient is to continue with medications as mentioned below. Patient has been cleared by cardiology for discharge today with close outpatient follow-up. Please refer to cardiology no for further HPI. Patient reports to feeling well and would like to go home. Currently no reports of chest pain, shortness of breath, or palpitations. Patient is afebrile. No reports of nausea or vomiting and patient is tolerating diet. Patient will be discharged home today. Guarded prognosis. Physical exam: Gen: This is a 81-year-old male who is awake, alert and oriented 3, well- developed, well-nourished HEENT: Head is atraumatic, normocephalic. Pupils equal, round. Sclerae is anicteric. NECK: Supple. No JVD. No lymphadenopathy. No thyromegaly. LUNGS: Diminished breath sounds bilaterally with no wheezes or rhonchi. No intercostal retractions. HEART: S1, S2 are muffled ABDOMEN: Soft. Bowel sounds are present. No masses. No tenderness. EXTREMITIES: No pedal edema. No calf tenderness. NEUROLOGICAL: Patient is awake, alert and oriented x3. Cranial nerves 2 through 12 are grossly intact. Please refer to medication reconciliation sheet for a list of medications. The impression and plan of care has been dictated by Suyapa Diaz, Nurse Practitioner as directed. Dr. José Miguel MD I have performed a history and examination and MDM of this patient, discussed the same with the dictator, and agree with the dictator's assessment and plan as written ,documented as a scribe. Based on total visit time, I have performed more than 50% of the visit. Patient Condition at Discharge: Fair Plan - Discharge Summary Discharge Rx Participant: No New Discharge Prescriptions: New Nitroglycerin Sl Tabs [Nitrostat] 0.4 mg SUBLINGUAL Q5M PRN #25 tab PRN Reason: Chest Pain Ranolazine [Ranexa] 500 mg PO Q12HR #180 tab Isosorbide Mononitrate ER [Imdur] 30 mg PO BID #80 tab Atorvastatin [Lipitor] 80 mg PO DAILY #90 tab Clopidogrel [Plavix] 75 mg PO DAILY #90 tab Metoprolol Succinate (ER) [Toprol XL] 25 mg PO DAILY #90 tab lisinopriL [Zestril] 2.5 mg PO DAILY #90 tab Continue Aspirin 81 mg PO DAILY ALPRAZolam [Xanax] 0.25 mg PO HS Levothyroxine Sodium [Synthroid] 100 mcg PO DAILY Mirtazapine [Remeron] 15 mg PO HS Discontinued ramipriL 10 mg PO DAILY Atorvastatin [Lipitor] 40 mg PO DAILY amLODIPine [Norvasc] 10 mg PO DAILY Discharge Medication List ALPRAZolam [Xanax] 0.25 mg PO HS 07/25/22 [History] Aspirin 81 mg PO DAILY 07/25/22 [History] Levothyroxine Sodium [Synthroid] 100 mcg PO DAILY 07/25/22 [History] Mirtazapine [Remeron] 15 mg PO HS 07/25/22 [History] Atorvastatin [Lipitor] 80 mg PO DAILY #90 tab 07/27/22 [Rx] Clopidogrel [Plavix] 75 mg PO DAILY #90 tab 07/27/22 [Rx] Isosorbide Mononitrate ER [Imdur] 30 mg PO BID #80 tab 07/27/22 [Rx] Metoprolol Succinate (ER) [Toprol XL] 25 mg PO DAILY #90 tab 07/27/22 [Rx] Nitroglycerin Sl Tabs [Nitrostat] 0.4 mg SUBLINGUAL Q5M PRN #25 tab 07/27/22 [Rx] Ranolazine [Ranexa] 500 mg PO Q12HR #180 tab 07/27/22 [Rx] lisinopriL [Zestril] 2.5 mg PO DAILY #90 tab 07/27/22 [Rx] Follow up Appointment(s)/Referral(s): Tyree Guillory MD [STAFF PHYSICIAN] - 1 Week (Office will call you with follow up appointment.) Patient Instructions/Handouts: Chest Pain (ED), After Radial Heart Catheterization (GEN) Activity/Diet/Wound Care/Special Instructions: Activity Limited until follow-up Follow-up primary care provider on discharge Follow-up cardiology in one week Continue taking meds as prescribed Discharge Disposition: HOME SELF-CARE
== END 2022-07-27 12:31 | disposition home or self-care (01) | DRG 247 ==
LOC: EC 22:12 → 6NMEDSUR 07-25 00:32 → 3SCARD 07-25 00:55 → OBSVTOIN 07-26 19:49
PROVIDERS: ADMIT Hospitalist; ATTEND Hospitalist
PROC: B2111ZZ Fluoroscopy of Multiple Coronary Arteries using Low Osmolar Contrast (ICD-10-PCS; principal; 2022-07-25 10:54)
PROC: B240ZZ3 Ultrasonography of Single Coronary Artery, Intravascular (ICD-10-PCS; principal; 2022-07-25 10:54)
PROC: 4A023N7 Measurement of Cardiac Sampling and Pressure, Left Heart, Percutaneous Approach (ICD-10-PCS; principal; 2022-07-25 10:54)
PROC: 027034Z Dilation of Coronary Artery, One Artery with Drug-eluting Intraluminal Device, Percutaneous Approach (ICD-10-PCS; principal; 2022-07-25 10:54)
DX: I25.110 Atherosclerotic heart disease of native coronary artery with unstable angina pectoris (principal); T82.855A Stenosis of coronary artery stent, initial encounter; I10 Essential (primary) hypertension; E78.5 Hyperlipidemia, unspecified; D64.9 Anemia, unspecified; D72.829 Elevated white blood cell count, unspecified; Z88.5 Allergy status to narcotic agent; Z88.6 Allergy status to analgesic agent; Z95.5 Presence of coronary angioplasty implant and graft; Z87.891 Personal history of nicotine dependence; I25.2 Old myocardial infarction
CPT/HCPCS: 36415; 71046; 80048; 80053; 83735; 84484; 85025; 85610; 85730; 92978; 93005; 93306; 93458; 94760; 96365; 96375; 99285

== ENCOUNTER 2022-09-03 20:26 | Emergency (ER) | payer MEDICARE ==
[2022-09-03 20:33] VITALS: TEMP 98.9
[2022-09-03] MEDS ORDERED: ASPIRIN 81 MG PO STA (20:58)
--- NOTE | 2022-09-03 20:58 | ED ---
Chest Pain HPI - General Chief Complaint: Chest Pain Stated Complaint: Chest Pain Source: patient, family Mode of arrival: ambulatory Limitations: no limitations - History of Present Illness Initial Comments: This patient is 81-year-old man who presents to have evaluation for episode of chest pain that had occurred some hours ago. He states that symptoms have resolved now. MD Complaint: chest pain, other (Left arm pain) Onset/Timin -: hour(s) Onset: during rest Pain Location: left chest Pain Radiation: LUE Severity: moderate Quality: aching Consistency: now resolved Improves With: nothing Worsens With: nothing Treatments Prior to Arrival: none - Related Data Home Medications Medication Instructions Recorded Confirmed ALPRAZolam [Xanax] 0.25 mg PO HS 07/25/22 09/03/22 Levothyroxine Sodium [Synthroid] 100 mcg PO DAILY 07/25/22 09/03/22 Pantoprazole Sodium [Protonix] 40 mg PO DAILY 09/03/22 09/03/22 Previous Rx's Medication Instructions Recorded Atorvastatin [Lipitor] 80 mg PO DAILY #90 tab 07/27/22 Clopidogrel [Plavix] 75 mg PO DAILY #90 tab 07/27/22 Isosorbide Mononitrate ER [Imdur] 30 mg PO BID #80 tab 07/27/22 Metoprolol Succinate (ER) [Toprol 25 mg PO DAILY #90 tab 07/27/22 XL] Nitroglycerin Sl Tabs [Nitrostat] 0.4 mg SUBLINGUAL Q5M PRN #25 tab 07/27/22 Ranolazine [Ranexa] 500 mg PO Q12HR #180 tab 07/27/22 lisinopriL [Zestril] 2.5 mg PO DAILY #90 tab 07/27/22 Allergies Allergy/AdvReac Type Severity Reaction Status Date / Time codeine AdvReac Nausea & Verified 09/03/22 22:18 Vomiting hydrocodone [From Vicodin] AdvReac Nausea & Verified 09/03/22 22:18 Vomiting ibuprofen [From Motrin] AdvReac Nausea & Verified 09/03/22 22:18 Vomiting morphine AdvReac Nausea & Verified 09/03/22 22:18 Vomiting & Diarrhea propoxyphene [From Darvon] AdvReac Nausea & Verified 09/03/22 22:18 Vomiting Review of Systems ROS Statement: Those systems with pertinent positive or pertinent negative responses have been documented in the HPI. ROS Other: All systems not noted in ROS Statement are negative. Constitutional: Denies: fever, chills, weakness Respiratory: Denies: cough, dyspnea Cardiovascular: Reports: chest pain. Denies: palpitations, orthopnea, edema, syncope Gastrointestinal: Denies: abdominal pain, nausea, vomiting, diarrhea, melena, hematochezia Genitourinary: Denies: dysuria, hematuria Musculoskeletal: Denies: back pain Skin: Denies: rash Neurological: Denies: headache, weakness EKG Findings - EKG Results: EKG: interpreted by RANJIT, sinus rhythm, normal axis EKG shows: bradycardia (Rate 59 bpm) - Blocks, [place], Hypertrophy, ST Abn: Chamber hypertrophy or enlargement: left ventricular hypertrophy or enlargement (LVE) - [place], Pacemaker, Normal: Myocardial infarction: lateral [place] (old age or indeterminate) Past Medical History Past Medical History: Coronary Artery Disease (CAD), Chest Pain / Angina History of Any Multi-Drug Resistant Organisms: None Reported Past Surgical History: Heart Catheterization With Stent Additional Past Surgical History / Comment(s): hx of 5 stents placed Date of Last Stent Placement:: 2019 Past Psychological History: No Psychological Hx Reported Smoking Status: Former smoker Past Alcohol Use History: Daily Past Drug Use History: None Reported - Past Family History Mother History Unknown: Yes Father Family Medical History: No Reported History General Exam Limitations: no limitations General appearance: alert, in no apparent distress Head exam: Present: atraumatic, normocephalic Eye exam: Present: normal appearance. Absent: scleral icterus, conjunctival injection Neck exam: Present: normal inspection Respiratory exam: Present: normal lung sounds bilaterally. Absent: respiratory distress, wheezes, rales, rhonchi, stridor, accessory muscle use Cardiovascular Exam: Present: regular rate, normal rhythm, normal heart sounds. Absent: systolic murmur, diastolic murmur, rubs, gallop GI/Abdominal exam: Present: soft. Absent: distended, tenderness, guarding, rebound, rigid, mass Extremities exam: Present: normal inspection, normal capillary refill. Absent: pedal edema, calf tenderness Back exam: Present: normal inspection. Absent: CVA tenderness (R), CVA tenderness (L) Neurological exam: Present: alert Skin exam: Present: warm, dry, intact, normal color. Absent: rash Course Vital Signs 09/03/22 09/03/22 09/03/22 20:29 22:02 22:14 Temperature 98.9 F Pulse Rate 58 L 50 L 52 L Respiratory 22 16 18 Rate Blood Pressure 202/84 162/82 157/76 O2 Sat by Pulse 99 98 97 Oximetry Chest Pain MDM - MDM The patient had chest x-ray which I interpreted as being negative for acute infiltrate, pneumothorax, congestive heart failure Was pt. sent in by a medical professional or institution (, PA, DIRECTOR OF CLAIMS, urgent care, hospital, or retirement...) When possible be specific @ -[No] Did you speak to anyone other than the patient for history (EMS, parent, family, police, friend...)? What history was obtained from this source @ -[No] Did you review nursing and triage notes (agree or disagree)? Why? @ -[I reviewed and agree with nursing and triage notes] Were old charts reviewed (outside hosp., previous admission, EMS record, old EKG, old radiological studies, urgent care reports/EKG's, retirement records)? Report findings @ -[No old charts were reviewed] Differential Diagnosis (chest pain, altered mental status, abdominal pain women, abdominal pain men, vaginal bleeding, weakness, fever, dyspnea, syncope, headache, dizziness, GI bleed, back pain, seizure, CVA, palpatations, mental health, musculoskeletal)? @ -[Differential Chest Pain: Stable Angina, Unstable Angina, STEMI, NSTEMI Aortic Dissection, Pneumothorax, Musculoskeletal, Esophageal Spasm GERD, Cholecystitis, Pancreatitis, Zoster, this is not meant to be an all-inclusive list. EKG interpreted by me (3pts min.). @ -[As above] X-rays interpreted by me (1pt min.). @ -[As above CT interpreted by me (1pt min.). @ -[None done] U/S interpreted by me (1pt. min.). @ -[None done] What testing was considered but not performed or refused? (CT, X-rays, U/S, labs)? Why? @ -[None] What meds were considered but not given or refused? Why? @ -[None] Did you discuss the management of the patient with other professionals (professionals i.e. , PA, DIRECTOR OF CLAIMS, lab, RT, psych nurse, social welfare administrator, middle school special education teacher, teacher, third officer, egg caser)? Give summary @ -[No] Was smoking cessation discussed for >3mins.? @ -[No] Was critical care preformed (if so, how long)? @ -[No] Were there social determinants of health that impacted care today? How? (Homelessness, low income, unemployed, alcoholism, drug addiction, transportation, low edu. Level, literacy, decrease access to med. care, detention, rehab)? @ -[No] Was there de-escalation of care discussed even if they declined (Discuss DNR or withdrawal of care, Hospice)? DNR status @ -[No] What co-morbidities impacted this encounter? (DM, HTN, Smoking, COPD, CAD, Cancer, CVA, ARF, Chemo, Hep., AIDS, mental health diagnosis, sleep apnea, morbid obesity)? @ -[None] Was patient admitted / discharged? Hospital course, mention meds given and route, prescriptions, significant lab abnormalities, going to OR and other pertinent info. @ -[This patient is 81-year-old man presenting with episode of chest pain consistent with stable angina. We discussed further evaluation at this point patient's old like to go home to follow with his pharmacy resident. We discussed appropriate further care as well as return parameters. Undiagnosed new problem with uncertain prognosis? @ -[No] Drug Therapy requiring intensive monitoring for toxicity (Heparin, Nitro, Insulin, Cardizem)? @ -[No] Were any procedures done? @ -[No] Diagnosis/symptom? @ -[Acute stable angina Acute, or Chronic, or Acute on Chronic? @ -[default] Uncomplicated (without systemic symptoms) or Complicated (systemic symptoms)? @ -[Uncomplicated Side effects of treatment? @ -[No] Exacerbation, Progression, or Severe Exacerbation? @ -[No] Poses a threat to life or bodily function? How? (Chest pain, [place], [place], pneumonia, PE, COPD, DKA, ARF, appy, cholecystitis, CVA, Diverticulitis, Homicidal, Suicidal, threat to staff... and all critical care pts) @ -[No] Disposition Clinical Impression: Angina pectoris Disposition: HOME SELF-CARE Condition: Fair Instructions (If sedation given, give patient instructions): Angina (ED) Is patient prescribed a controlled substance at d/c from ED?: No Referrals: Nonstaff,Physician [Primary Care Provider] - 1-2 days
[2022-09-03 21:28] LABS: INR 1.1 (<1.2); Partial Thromboplastin Time 24.3 sec (22.0-30.0); Prothrombin Time 11.8 sec (9.0-12.0)
--- NOTE | 2022-09-03 21:39 | XR ---
EXAMINATION TYPE: XR chest 2V DATE OF EXAM: 09/03/2022 9:14 PM COMPARISON: Chest radiographs from 07/24/2022. TECHNIQUE: XR chest 2V Frontal and lateral views of the chest. CLINICAL INDICATION:Male, 81 years old with history of Chest Pain; FINDINGS: Lungs/Pleura: Low lung volumes are present. There is no evidence of pleural effusion, focal consolida tion, or pneumothorax. Pulmonary vascularity: Unremarkable. Heart/mediastinum: Cardiomediastinal silhouette is unremarkable. Musculoskeletal: No acute osseous pathology. IMPRESSION: 1. No acute cardiopulmonary disease process. 2. COPD changes.
[2022-09-03 21:50] LABS: ALT 18 U/L (4-49); AST 22 U/L (17-59); African American GFR (CKD) 79 (>60 ml/min/1.73 sqM); Albumin 3.9 g/dL (3.5-5.0); Alkaline Phosphatase 62 U/L (38-126); Anion Gap 6 mmol/L; Blood Urea Nitrogen 16 mg/dL (9-20); Calcium 8.5 mg/dL (8.4-10.2); Carbon Dioxide 25 mmol/L (22-30); Chloride 103 mmol/L (98-107); Glucose 96 mg/dL (74-99); Magnesium 1.9 mg/dL (1.6-2.3); Non-African American GFR(CKD) 68 (>60 ml/min/1.73 sqM); Potassium 4.3 mmol/L (3.5-5.1); Sodium 134 mmol/L (137-145); Total Bilirubin 0.6 mg/dL (0.2-1.3); Total Protein 6.5 g/dL (6.3-8.2)
[2022-09-03 21:56] LABS: Basophils % (A) 0 %; Eosinophils # (A) 0.3 k/uL (0-0.7); Eosinophils % (A) 4 %; HGB 12.1 gm/dL (13.0-17.5); Lymphocytes # (A) 1.6 k/uL (1.0-4.8); Lymphocytes % (A) 23 %; MCH 35.2 pg (25.0-35.0); MCHC 34.5 g/dL (31.0-37.0); Macrocytosis Slight; Mean Platelet Volume 9.1; Monocytes # (A) 0.7 k/uL (0-1.0); Monocytes % (A) 10 %; Neutrophils # (A) 4.2 k/uL (1.3-7.7); Neutrophils % (A) 61 %; Platelet Count 163 k/uL (150-450); RBC 3.43 m/uL (4.30-5.90); RDW 12.7 % (11.5-15.5); WBC 6.9 k/uL (3.8-10.6)
[2022-09-03 22:15] VITALS: BP 157/76; PULSE 52; RESP 18
== END 2022-09-03 22:42 | disposition home or self-care (01) ==
LOC: EC 20:26
DX: I25.119 Atherosclerotic heart disease of native coronary artery with unspecified angina pectoris (principal); J44.9 Chronic obstructive pulmonary disease, unspecified; Z87.891 Personal history of nicotine dependence; Z79.899 Other long term (current) drug therapy; Z88.5 Allergy status to narcotic agent; Z88.6 Allergy status to analgesic agent; Z88.8 Allergy status to other drugs, medicaments and biological substances
CPT/HCPCS: 36415; 71046; 80053; 83735; 84484; 85025; 85610; 85730; 93005; 99285

== ENCOUNTER 2022-10-06 23:54 | Inpatient (IN) | payer MEDICARE ==
[2022-10-07 00:18] LABS: Basophils % (A) 0 %; Eosinophils # (A) 0.4 k/uL (0-0.7); Eosinophils % (A) 6 %; HCT 39.7 % (39.0-53.0); HGB 13.3 gm/dL (13.0-17.5); Lymphocytes # (A) 1.6 k/uL (1.0-4.8); Lymphocytes % (A) 24 %; MCHC 33.5 g/dL (31.0-37.0); MCV 104.3 fL (80.0-100.0); Macrocytosis Slight; Mean Platelet Volume 8.7; Monocytes # (A) 0.6 k/uL (0-1.0); Monocytes % (A) 10 %; Neutrophils # (A) 3.9 k/uL (1.3-7.7); Neutrophils % (A) 58 %; Platelet Count 196 k/uL (150-450); RBC 3.81 m/uL (4.30-5.90); RDW 12.6 % (11.5-15.5); WBC 6.8 k/uL (3.8-10.6)
[2022-10-07] MEDS ORDERED: ASPIRIN 81 MG PO STA (00:30)
--- NOTE | 2022-10-07 00:33 | ED ---
General Adult HPI - General Chief complaint: Chest Pain Stated complaint: Chest Pain Time Seen by Provider: 10/07/22 00:01 Source: patient Mode of arrival: wheelchair Limitations: no limitations - History of Present Illness Initial comments: Dictation was produced using [employer] dictation software. please excuse any grammatical, word or spelling errors. Chief Complaint: 81-year-old male presents with chest pain History of Present Illness: Patient's 81-year-old male past medical history coronary artery disease presents with chest pain and hypertension. Patient states today he said that when he rolled over to his left side started to feel pressure in his left anterior chest. It went down his left upper extremity. He checked his blood pressure on be high. Patient states he at baseline has some mild pressure. His baseline blood pressures around 170 systolic. A stress test recently however has not had the results yet. P The ROS documented in this emergency department record has been reviewed and confirmed by me. Those systems with pertinent positive or negative responses have been documented in the HPI. All other systems are other negative and/or noncontributory. - Related Data Home Medications Medication Instructions Recorded Confirmed ALPRAZolam [Xanax] 0.25 mg PO HS 07/25/22 09/03/22 Levothyroxine Sodium [Synthroid] 100 mcg PO DAILY 07/25/22 09/03/22 Pantoprazole Sodium [Protonix] 40 mg PO DAILY 09/03/22 09/03/22 Previous Rx's Medication Instructions Recorded Atorvastatin [Lipitor] 80 mg PO DAILY #90 tab 07/27/22 Clopidogrel [Plavix] 75 mg PO DAILY #90 tab 07/27/22 Isosorbide Mononitrate ER [Imdur] 30 mg PO BID #80 tab 07/27/22 Metoprolol Succinate (ER) [Toprol 25 mg PO DAILY #90 tab 07/27/22 XL] Nitroglycerin Sl Tabs [Nitrostat] 0.4 mg SUBLINGUAL Q5M PRN #25 tab 07/27/22 Ranolazine [Ranexa] 500 mg PO Q12HR #180 tab 07/27/22 lisinopriL [Zestril] 2.5 mg PO DAILY #90 tab 07/27/22 Allergies Allergy/AdvReac Type Severity Reaction Status Date / Time codeine AdvReac Nausea & Verified 09/03/22 22:18 Vomiting hydrocodone [From Vicodin] AdvReac Nausea & Verified 09/03/22 22:18 Vomiting ibuprofen [From Motrin] AdvReac Nausea & Verified 09/03/22 22:18 Vomiting morphine AdvReac Nausea & Verified 09/03/22 22:18 Vomiting & Diarrhea propoxyphene [From Darvon] AdvReac Nausea & Verified 09/03/22 22:18 Vomiting Review of Systems ROS Statement: Those systems with pertinent positive or pertinent negative responses have been documented in the HPI. ROS Other: All systems not noted in ROS Statement are negative. Past Medical History Past Medical History: Coronary Artery Disease (CAD), Chest Pain / Angina History of Any Multi-Drug Resistant Organisms: None Reported Past Surgical History: Heart Catheterization With Stent Additional Past Surgical History / Comment(s): hx of 5 stents placed Date of Last Stent Placement:: 2019 Past Psychological History: No Psychological Hx Reported Smoking Status: Former smoker Past Alcohol Use History: Daily Past Drug Use History: None Reported - Past Family History Mother History Unknown: Yes Father Family Medical History: No Reported History General Exam - General Exam Comments Initial Comments: PHYSICAL EXAM: General Impression: Alert and oriented x3, not in acute distress HEENT: Normocephalic atraumatic, extra-ocular movements intact, pupils equal and reactive to light bilaterally, mucous membranes moist. Cardiovascular: Heart regular rate and rhythm Chest: Able to complete full sentences, no retractions, no tachypnea Abdomen: abdomen soft, non-tender, non-distended, no organomegaly Musculoskeletal: Pulses present and equal in all extremities, no peripheral edema Motor: no focal deficits noted Neurological: CN II-XII grossly intact, no focal motor or sensory deficits noted Skin: Intact with no visualized rashes Psych: Normal affect and mood Limitations: no limitations Course Vital Signs 10/06/22 10/06/22 10/07/22 23:56 23:59 00:59 Temperature 97.8 F Pulse Rate 58 L 54 L 56 L Respiratory 18 18 18 Rate Blood Pressure 176/72 193/107 172/101 O2 Sat by Pulse 99 100 Oximetry 10/07/22 01:00 Temperature Pulse Rate Respiratory Rate Blood Pressure 185/88 O2 Sat by Pulse Oximetry EKG Findings - EKG Comments: EKG Findings:: My EKG interpretation: Ventricular rate 57, sinus bradycardia, IL interval 162, QRS 11, QTC 411. No IL prolongation, no QTC prolongation, no ST or T-wave changes noted. Overall, this EKG is unremarkable Medical Decision Making - Medical Decision Making Was pt. sent in by a medical professional or institution (ELIZABETH Olivo, TRANSLATOR/INTERPRETER, urgent care, hospital, or usp...) When possible be specific @ -No Did you speak to anyone other than the patient for history (EMS, parent, family, police, friend...)? What history was obtained from this source @ -No Did you review nursing and triage notes (agree or disagree)? Why? @ -I reviewed and agree with nursing and triage notes Were old charts reviewed (outside hosp., previous admission, EMS record, old EKG, old radiological studies, urgent care reports/EKG's, usp records)? Report findings @ -No old charts were reviewed Differential Diagnosis (chest pain, altered mental status, abdominal pain women, abdominal pain men, vaginal bleeding, musculoskeletal, weakness, fever, dyspnea, syncope, headache, dizziness, GI bleed, back pain, seizure, CVA, palpatations, mental health)? @ -Differential Chest Pain: Stable Angina, Unstable Angina, STEMI, NSTEMI Aortic Dissection, Pneumothorax, Musculoskeletal, Esophageal Spasm GERD, Cholecystitis, Pancreatitis, Zoster, this is not meant to be an all-inclusive list. EKG interpreted by me (3pts min.). @ -See above X-rays interpreted by me (1pt min.). @ -No acute processes. Chest x-ray CT interpreted by me (1pt min.). @ -None done U/S interpreted by me (1pt. min.). @ -None done What testing was considered but not performed or refused? (CT, X-rays, U/S, labs)? Why? @ -None What meds were considered but not given or refused? Why? @ -None Did you discuss the management of the patient with other professionals (professionals i.e. ELIZABETH Olivo, TRANSLATOR/INTERPRETER, lab, RT, psych nurse, bilingual social worker, recreation teacher, teacher, flight radio officer, correctional casework specialist)? Give summary @ -No Was smoking cessation discussed for >3mins.? @ -No Was critical care preformed (if so, how long)? @ -No Were there social determinants of health that impacted care today? How? (Homelessness, low income, unemployed, alcoholism, drug addiction, transportation, low edu. Level, literacy, decrease access to med. care, assisted, rehab)? @ -No Was there de-escalation of care discussed even if they declined (Discuss DNR or withdrawal of care, Hospice)? DNR status @ -No What co-morbidities impacted this encounter? (DM, HTN, Smoking, COPD, CAD, Cancer, CVA, ARF, Chemo, Hep., AIDS, mental health diagnosis, sleep apnea, m orbid obesity)? @ -Coronary artery disease Was patient admitted / discharged? Hospital course, mention meds given and route, prescriptions, significant lab abnormalities, going to OR and other pertinent info. @ -81-year-old male past medical history of coronary artery disease presents to emergency with chest pain suspicious for acute coronary syndrome. Vital signs upon arrival are within acceptable limits. Laboratory evaluation obtained. Troponin is negative. Rest of labs within acceptable limits. Patient reevaluated bedside at 2:45 AM continues to be symptomatic. Patient be admitted for cardiac monitoring and cardiology consultation. Undiagnosed new problem with uncertain prognosis? @ -No Drug Therapy requiring intensive monitoring for toxicity (Heparin, Nitro, Insulin, Cardizem)? @ -No Were any procedures done? @ -No Diagnosis/symptom? Acute, or Chronic, or Acute on Chronic? Uncomplicated (without systemic symptoms) or Complicated (systemic symptoms)? @ -Chest pain Side effects of treatment? @ -No Exacerbation, Progression, or Severe Exacerbation? @ -No Poses a threat to life or bodily function? How? (Chest pain, [place], [place], pneumonia, PE, COPD, DKA, ARF, appy, cholecystitis, CVA, Diverticulitis, Homicidal, Suicidal, threat to staff... and all critical care pts) @ -yes - Lab Data Result diagrams: 10/07/22 00:13 10/07/22 00:13 Lab Results 10/07/22 10/07/22 10/07/22 Range/Units 00:13 00:13 00:13 WBC 6.8 (3.8-10.6) k/uL RBC 3.81 L (4.30-5.90) m/uL Hgb 13.3 (13.0-17.5) gm/dL Hct 39.7 (39.0-53.0) % MCV 104.3 H (80.0-100.0) fL MCH 35.0 (25.0-35.0) pg MCHC 33.5 (31.0-37.0) g/dL RDW 12.6 (11.5-15.5) % Plt Count 196 (150-450) k/uL MPV 8.7 Neutrophils % 58 % Lymphocytes % 24 % Monocytes % 10 % Eosinophils % 6 % Basophils % 0 % Neutrophils # 3.9 (1.3-7.7) k/uL Lymphocytes # 1.6 (1.0-4.8) k/uL Monocytes # 0.6 (0-1.0) k/uL Eosinophils # 0.4 (0-0.7) k/uL Basophils # 0.0 (0-0.2) k/uL Macrocytosis Slight PT 11.0 (9.0-12.0) sec INR 1.1 (<1.2) APTT 23.8 (22.0-30.0) sec Sodium 137 (137-145) mmol/L Potassium 4.0 (3.5-5.1) mmol/L Chloride 104 (98-107) mmol/L Carbon Dioxide 23 (22-30) mmol/L Anion Gap 10 mmol/L BUN 17 (9-20) mg/dL Creatinine 1.13 (0.66-1.25) mg/dL Est GFR (CKD-EPI)AfAm 71 (>60 ml/min/1.73 sqM) Est GFR (CKD-EPI)NonAf 62 (>60 ml/min/1.73 sqM) Glucose 115 H (74-99) mg/dL Calcium 8.9 (8.4-10.2) mg/dL Magnesium 2.2 (1.6-2.3) mg/dL Total Bilirubin 0.6 (0.2-1.3) mg/dL AST 30 (17-59) U/L ALT 17 (4-49) U/L Alkaline Phosphatase 68 (38-126) U/L Troponin I (0.000-0.034) ng/mL Total Protein 7.0 (6.3-8.2) g/dL Albumin 4.3 (3.5-5.0) g/dL 10/07/22 Range/Units 00:13 WBC (3.8-10.6) k/uL RBC (4.30-5.90) m/uL Hgb (13.0-17.5) gm/dL Hct (39.0-53.0) % MCV (80.0-100.0) fL MCH (25.0-35.0) pg MCHC (31.0-37.0) g/dL RDW (11.5-15.5) % Plt Count (150-450) k/uL MPV Neutrophils % % Lymphocytes % % Monocytes % % Eosinophils % % Basophils % % Neutrophils # (1.3-7.7) k/uL Lymphocytes # (1.0-4.8) k/uL Monocytes # (0-1.0) k/uL Eosinophils # (0-0.7) k/uL Basophils # (0-0.2) k/uL Macrocytosis PT (9.0-12.0) sec INR (<1.2) APTT (22.0-30.0) sec Sodium (137-145) mmol/L Potassium (3.5-5.1) mmol/L Chloride (98-107) mmol/L Carbon Dioxide (22-30) mmol/L Anion Gap mmol/L BUN (9-20) mg/dL Creatinine (0.66-1.25) mg/dL Est GFR (CKD-EPI)AfAm (>60 ml/min/1.73 sqM) Est GFR (CKD-EPI)NonAf (>60 ml/min/1.73 sqM) Glucose (74-99) mg/dL Calcium (8.4-10.2) mg/dL Magnesium (1.6-2.3) mg/dL Total Bilirubin (0.2-1.3) mg/dL AST (17-59) U/L ALT (4-49) U/L Alkaline Phosphatase (38-126) U/L Troponin I <0.012 (0.000-0.034) ng/mL Total Protein (6.3-8.2) g/dL Albumin (3.5-5.0) g/dL Disposition Clinical Impression: Chest pain Disposition: ADMITTED IP TO THIS [facility] Condition: Fair Referrals: None,Stated [Primary Care Provider] - 1-2 days Decision Time: 02:00
[2022-10-07 00:46] LABS: INR 1.1 (<1.2); Partial Thromboplastin Time 23.8 sec (22.0-30.0)
[2022-10-07 01:06] LABS: ALT 17 U/L (4-49); AST 30 U/L (17-59); African American GFR (CKD) 71 (>60 ml/min/1.73 sqM); Albumin 4.3 g/dL (3.5-5.0); Alkaline Phosphatase 68 U/L (38-126); Anion Gap 10 mmol/L; Blood Urea Nitrogen 17 mg/dL (9-20); Calcium 8.9 mg/dL (8.4-10.2); Carbon Dioxide 23 mmol/L (22-30); Chloride 104 mmol/L (98-107); Glucose 115 mg/dL (74-99); Magnesium 2.2 mg/dL (1.6-2.3); Non-African American GFR(CKD) 62 (>60 ml/min/1.73 sqM); Sodium 137 mmol/L (137-145); Total Bilirubin 0.6 mg/dL (0.2-1.3)
[2022-10-07] MEDS ORDERED: NITROGLYCERIN SL TABS 0.4 MG TAB SUBLINGUAL PRN ×2 (02:52→09:46)
[2022-10-07] MEDS: ZOLPIDEM 5 MG TAB PO PRN ×2 (03:19→20:25)
--- NOTE | 2022-10-07 05:33 | XR ---
EXAM: XR Chest, 2 Views CLINICAL HISTORY: Chest Pain TECHNIQUE: Frontal and lateral views of the chest. COMPARISON: 09/03/2022. FINDINGS: Lungs: No consolidation. No atelectasis. No CHF. Pleural space: No pleural effusion. No pneumothorax. Heart: No cardiomegaly. Mediastinum: Unremarkable. Bones/joints: Degenerative changes of the thoracic spine. IMPRESSION: No acute abnormality.
[2022-10-07] MEDS ORDERED: lisinopriL 10 MG TAB PO SCH (09:00)
[2022-10-07] MEDS ORDERED: RANOLAZINE 500 MG TAB.ER.12H PO SCH (09:00)
[2022-10-07] MEDS: CLOPIDOGREL 75 MG TAB PO SCH (09:45)
[2022-10-07] MEDS: METOPROLOL SUCCINATE (ER) 25 MG TAB.ER.24H PO SCH (09:45)
[2022-10-07] MEDS: ISOSORBIDE MONONITRATE ER 60 MG TAB.ER.24H PO SCH ×2 (09:45→20:25)
[2022-10-07] MEDS: ATORVASTATIN 80 MG TAB PO SCH (09:45)
[2022-10-07] MEDS: lisinopriL 20 MG TAB PO SCH (09:45)
[2022-10-07] MEDS: hydroCHLOROthiazide 25 MG TAB PO SCH (09:46)
[2022-10-07] MEDS: RANOLAZINE 500 MG TAB.ER.12H PO SCH ×2 (09:46→20:25)
[2022-10-07] MEDS: PANTOPRAZOLE 40 MG TABLET PO SCH (10:44)
[2022-10-07] MEDS: LEVOTHYROXINE 100 MCG TAB PO SCH (10:44)
--- NOTE | 2022-10-07 10:47 | P.CRDCN ---
History of Present Illness History of present illness: HISTORY OF PRESENT ILLNESS: This is a 81-year-old male with a past medical history significant for hypertension, hyperlipidemia, nicotine dependence, and coronary artery disease with previous stenting of the RCA with multiple layers of stents. Patient follows in the office with Dr. Guillory. We have been asked to see the patient in consultation for chest pain. Patient examined at the bedside. Patient states he was at home when he rolled over in his bed and developed back on the left side of his chest. He states that this concerned him so he got out of bed and took his blood pressure and his systolic blood pressure was found to be 213. He states that he took 3 nitro at home. The patient was recently seen in the office by Dr. Goncalves and his dose of Zestril and Imdur were both increased. The patient also reports that he had a stress test done earlier this week in the office. However results are currently not available. * EKG reveals sinus mechanism with no signs of acute ischemia * Chest xray negative for acute process * Current home cardiac medications include lisinopril 10 mg daily, Ranexa 500 mg twice a day, metoprolol succinate 25 mg daily, Imdur 60 mg twice a day, Plavix 75 mg daily, and Lipitor 80 mg daily * Most recent echocardiogram obtained in July 2022 revealed normal EF, mild AR, aortic dilatation of 3.9 cm. * Cardiac catheterization history: July 2022 revealing subtotally occluded RCA with in-stent occlusion. [id number] disease involving the left coronary system. Patient underwent stenting of the distal RCA and angioplasty of the mid RCA. REVIEW OF SYSTEMS: At the time of my exam: CONSTITUTIONAL: Denies fever or chills. HEENT: Denies blurred vision, vision changes, or eye pain. Denies hemoptysis CARDIOVASCULAR: Denies chest pain. Denies orthopnea. Denies PND. Denies palpitations RESPIRATORY: Denies shortness of breath. GASTROINTESTINAL: Denies abdominal pain. Denies nausea or vomiting. HEMATOLOGIC: Denies bleeding disorders. GENITOURINARY: Denies any blood in urine. SKIN: Denies pruitis. Denies rash. PHYSICAL EXAM: VITAL SIGNS: Reviewed. GENERAL: Well-developed in no acute distress. HEENT: Head is normocephalic. Pupils are equal, round. Sclerae anicteric. Mucous membranes of the mouth are moist. Neck supple. No JVD or thyromegaly LUNGS: Respirations even and unlabored. Lungs essentially clear to auscultation bilaterally. HEART: Regular rate and rhythm. S1 and S2 heard. ABDOMEN: Soft. Nondistended. Nontender. EXTREMITIES: Normal range of motion. No clubbing or cyanosis. Peripheral pulses intact. No lower extremity edema NEUROLOGIC: Awake and alert. Oriented x 3. ASSESSMENT: Chest pain, troponins negative 3 Hypertension, uncontrolled Coronary artery disease with previous stenting of RCA with multiple layers of stents Hyperlipidemia Nicotine dependence PLAN: No need to repeat echo as this was performed in July 2022 Will obtain records from recent stress testing performed in the office Resume home cardiac medications Increase lisinopril to 20 mg daily Increase Ranexa to 1000 mg twice a day Add hydrochlorothiazide 25 mg daily Continue to monitor blood pressure Continue to monitor patient for an additional 24 hours Further recommendations pending patient's course Nurse practitioner note has been reviewed by physician. Signing provider agrees with the documented findings, assessment, and plan of care. Past Medical History Past Medical History: Coronary Artery Disease (CAD), Chest Pain / Angina History of Any Multi-Drug Resistant Organisms: None Reported Past Surgical History: Heart Catheterization With Stent Additional Past Surgical History / Comment(s): hx of 5 stents placed Date of Last Stent Placement:: 2019 Past Psychological History: No Psychological Hx Reported Smoking Status: Former smoker Past Alcohol Use History: Daily Past Drug Use History: None Reported - Past Family History Mother History Unknown: Yes Father Family Medical History: No Reported History Medications and Allergies Home Medications Medication Instructions Recorded Confirmed Type ALPRAZolam [Xanax] 0.25 mg PO HS 07/25/22 10/07/22 History Levothyroxine Sodium [Synthroid] 100 mcg PO DAILY 07/25/22 10/07/22 History Atorvastatin [Lipitor] 80 mg PO DAILY #90 tab 07/27/22 10/07/22 Rx Clopidogrel [Plavix] 75 mg PO DAILY #90 tab 07/27/22 10/07/22 Rx Metoprolol Succinate (ER) [Toprol 25 mg PO DAILY #90 tab 07/27/22 10/07/22 Rx XL] Nitroglycerin Sl Tabs [Nitrostat] 0.4 mg SUBLINGUAL Q5M PRN #25 tab 07/27/22 10/07/22 Rx Ranolazine [Ranexa] 500 mg PO Q12HR #180 tab 07/27/22 10/07/22 Rx Pantoprazole Sodium [Protonix] 40 mg PO DAILY 09/03/22 10/07/22 History Isosorbide Mononitrate ER [Imdur] 60 mg PO BID 10/07/22 10/07/22 History lisinopriL [Zestril] 10 mg PO DAILY 10/07/22 10/07/22 History Allergies Allergy/AdvReac Type Severity Reaction Status Date / Time codeine AdvReac Nausea & Verified 10/07/22 07:40 Vomiting hydrocodone [From Vicodin] AdvReac Nausea & Verified 10/07/22 07:40 Vomiting ibuprofen [From Motrin] AdvReac Nausea & Verified 10/07/22 07:40 Vomiting morphine AdvReac Nausea & Verified 10/07/22 07:40 Vomiting & Diarrhea propoxyphene [From Darvon] AdvReac Nausea & Verified 10/07/22 07:40 Vomiting Physical Exam Vitals: Vital Signs Temp Pulse Resp BP Pulse Ox 10/07/22 07:57 50 L 18 141/68 97 10/07/22 06:00 49 L 16 137/65 10/07/22 02:00 49 L 18 163/86 99 10/07/22 01:00 185/88 10/07/22 00:59 56 L 18 172/101 100 10/06/22 23:59 54 L 18 193/107 10/06/22 23:56 97.8 F 58 L 18 176/72 99 Intake and Output 10/06/22 10/07/22 10/07/22 22:59 06:59 14:59 Other: Weight 71.668 kg Results 10/07/22 00:13 10/07/22 00:13 Cardiac Enzymes 10/07/22 10/07/22 10/07/22 Range/Units 00:13 00:13 04:58 AST 30 (17-59) U/L Troponin I <0.012 <0.012 (0.000-0.034) ng/mL Coagulation 10/07/22 Range/Units 00:13 PT 11.0 (9.0-12.0) sec APTT 23.8 (22.0-30.0) sec CBC 10/07/22 Range/Units 00:13 WBC 6.8 (3.8-10.6) k/uL RBC 3.81 L (4.30-5.90) m/uL Hgb 13.3 (13.0-17.5) gm/dL Hct 39.7 (39.0-53.0) % Plt Count 196 (150-450) k/uL Comprehensive Metabolic Panel 10/07/22 Range/Units 00:13 Sodium 137 (137-145) mmol/L Potassium 4.0 (3.5-5.1) mmol/L Chloride 104 (98-107) mmol/L Carbon Dioxide 23 (22-30) mmol/L BUN 17 (9-20) mg/dL Creatinine 1.13 (0.66-1.25) mg/dL Glucose 115 H (74-99) mg/dL Calcium 8.9 (8.4-10.2) mg/dL AST 30 (17-59) U/L ALT 17 (4-49) U/L Alkaline Phosphatase 68 (38-126) U/L Total Protein 7.0 (6.3-8.2) g/dL Albumin 4.3 (3.5-5.0) g/dL Current Medications Generic Name Dose Route Start Last Admin Trade Name Freq PRN Reason Stop Dose Admin Aspirin 325 mg 10/08/22 09:00 Aspirin 325 Mg Tab PO DAILY MARTHA Nitroglycerin 0.4 mg 10/07/22 02:52 Nitroglycerin Sl Tabs 0.4 Mg Tab SUBLINGUAL Q5M PRN Chest Pain Zolpidem Tartrate 10 mg 10/07/22 03:06 10/07/22 03:19 Zolpidem 5 Mg Tab PO 10 mg HS PRN Administration Insomnia Intake and Output 10/06/22 10/07/22 10/07/22 22:59 06:59 14:59 Other: Weight 71.668 kg 10/07/22 00:13 10/07/22 00:13
[2022-10-07 13:24] LABS: T4, Free (Free Thyroxine) 1.69 ng/dL (0.78-2.19)
--- NOTE | 2022-10-07 15:05 | P.HPIM ---
History of Present Illness H&P Date: 10/07/22 This is a 81-year-old male with medical history of coronary artery disease with prior cardiac stenting patient has a total of 7 stents most most recently placed in 2019. Patient is a former smoker. He lives in [facility] have the year and does not follow with a PCP in [place]. He does see cardiology. Comes in to the ER with complaints of chest pain and high blood pressure. Chest pain was reported as pressure like sensation on the left anterior chest wall with radiation down the left arm. States he was sleeping and rolled over when the chest pain started. At that time his blood pressure was in the 200s systolic. He took a total of 3 SL nitro at home and came in for evaluation. Currently denying chest pain, denies shortness of breath. Denies lightheadedness, dizziness, denies palpitations. He had no associated symptoms at the onset of the chest pain. Denies any diaphoresis, no recent illness. He had an outpatient stress test done a few days ago, cardiology is obtaining reports. Initial EKG showing sinus bradycardia with occasional supraventricular premature complexes possible lateral myocardial infarction with borderline ECG heart rate of 57. Chest x-ray showing no acute abnormality. Initial blood work showing a white count of 6.8, electrolytes are essentially unremarkable with Glucose is mildly elevated at 115. Troponin level was negative 3. He is admitted to the hospital under medicine with a consult placed to cardiology services. At the time of my evaluation his chest pain is resolved. REVIEW OF SYSTEMS: CONSTITUTIONAL: No fever, no malaise, no fatigue. HEENT: No recent visual problems or hearing problems. Denied any sore throat. CARDIOVASCULAR: No chest pain, orthopnea, PND, no palpitations, no syncope. PULMONARY: No shortness of breath, no cough, no hemoptysis. GASTROINTESTINAL: No diarrhea, no nausea, no vomiting, no abdominal pain. NEUROLOGICAL: No headaches, no weakness, no numbness. HEMATOLOGICAL: Denies any bleeding or petechiae. GENITOURINARY: Denies any burning micturition, frequency, or urgency. MUSCULOSKELETAL/RHEUMATOLOGICAL: Denies any joint pain, swelling, or any muscle pain. ENDOCRINE: Denies any polyuria or polydipsia. The rest of the 14-point review of systems is negative. PHYSICAL EXAMINATION: GENERAL: The patient is alert and oriented x3, not in any acute distress. Well developed, well nourished. HEENT: Pupils are round and equally reacting to light. EOMI. No scleral icterus. No conjunctival pallor. Normocephalic, atraumatic. No pharyngeal erythema. No thyromegaly. CARDIOVASCULAR: S1 and S2 present. No murmurs, rubs, or gallops. PULMONARY: Chest is clear to auscultation, no wheezing or crackles. ABDOMEN: Soft, nontender, nondistended, normoactive bowel sounds. No palpable organomegaly. MUSCULOSKELETAL: No joint swelling or deformity. EXTREMITIES: No cyanosis, clubbing, or pedal edema. NEUROLOGICAL: Gross neurological examination did not reveal any focal deficits. SKIN: No rashes. Asessment Chest pain rule out ACS with outpatient stress test a few days ago, reports are being obtained History of coronary artery disease with prior PCI patient has total of 7 stents he is maintained on aspirin/plavix outpatient Hypertension, uncontrolled Nicotine dependence Hyperlipidemia GI prophylaxis Full Code Plan Cardiology consultation, reports being obtained from office Medications have been adjusted, lisinopril and ranexa have been increased, hctz added for improved blood pressure control Monitor overnight Possible D/C home in the next 24 to 48 hrs pending cardiology recommendations. The impression and plan of care has been dictated by Denise Dominguez Nurse Practitioner as directed. Dr. Shoaib MD I have performed a history and physical examination and medical decision making of this patient, discussed the same with the dictator, and agree with the dictators assessment and plan as written, documented as a scribe. Based on total visit time, I have performed more than 50% of this visit. Past Medical History Past Medical History: Coronary Artery Disease (CAD), Chest Pain / Angina History of Any Multi-Drug Resistant Organisms: None Reported Past Surgical History: Heart Catheterization With Stent Additional Past Surgical History / Comment(s): hx of 5 stents placed Date of Last Stent Placement:: 2019 Past Psychological History: No Psychological Hx Reported Smoking Status: Former smoker Past Alcohol Use History: Daily Past Drug Use History: None Reported - Past Family History Mother History Unknown: Yes Father Family Medical History: No Reported History Medications and Allergies Home Medications Medication Instructions Recorded Confirmed Type ALPRAZolam [Xanax] 0.25 mg PO HS 07/25/22 10/07/22 History Levothyroxine Sodium [Synthroid] 100 mcg PO DAILY 07/25/22 10/07/22 History Atorvastatin [Lipitor] 80 mg PO DAILY #90 tab 07/27/22 10/07/22 Rx Clopidogrel [Plavix] 75 mg PO DAILY #90 tab 07/27/22 10/07/22 Rx Metoprolol Succinate (ER) [Toprol 25 mg PO DAILY #90 tab 07/27/22 10/07/22 Rx XL] Nitroglycerin Sl Tabs [Nitrostat] 0.4 mg SUBLINGUAL Q5M PRN #25 tab 07/27/22 10/07/22 Rx Ranolazine [Ranexa] 500 mg PO Q12HR #180 tab 07/27/22 10/07/22 Rx Pantoprazole Sodium [Protonix] 40 mg PO DAILY 09/03/22 10/07/22 History Isosorbide Mononitrate ER [Imdur] 60 mg PO BID 10/07/22 10/07/22 History lisinopriL [Zestril] 10 mg PO DAILY 10/07/22 10/07/22 History Allergies Allergy/AdvReac Type Severity Reaction Status Date / Time codeine AdvReac Nausea & Verified 10/07/22 07:40 Vomiting hydrocodone [From Vicodin] AdvReac Nausea & Verified 10/07/22 07:40 Vomiting ibuprofen [From Motrin] AdvReac Nausea & Verified 10/07/22 07:40 Vomiting morphine AdvReac Nausea & Verified 10/07/22 07:40 Vomiting & Diarrhea propoxyphene [From Darvon] AdvReac Nausea & Verified 10/07/22 07:40 Vomiting Physical Exam Vitals: Vital Signs Temp Pulse Pulse Resp BP BP Pulse Ox 10/07/22 07:57 50 L 18 141/68 97 10/07/22 07:00 97.9 F 52 L 16 166/81 99 10/07/22 06:00 49 L 16 137/65 10/07/22 02:00 49 L 18 163/86 99 10/07/22 01:00 185/88 10/07/22 00:59 56 L 18 172/101 100 10/06/22 23:59 54 L 18 193/107 10/06/22 23:56 97.8 F 58 L 18 176/72 99 Intake and Output 10/06/22 10/07/22 10/07/22 22:59 06:59 14:59 Other: Weight 71.668 kg Results CBC & Chem 7: 10/07/22 00:13 10/07/22 00:13 Labs: Abnormal Lab Results - Last 24 Hours (Table) 10/07/22 10/07/22 Range/Units 00:13 00:13 RBC 3.81 L (4.30-5.90) m/uL MCV 104.3 H (80.0-100.0) fL Glucose 115 H (74-99) mg/dL Assessment and Plan Time with Patient: Less than 30
[2022-10-07] MEDS ORDERED: ALPRAZolam 0.25 MG TAB PO SCH (21:00)
[2022-10-08] MEDS: PANTOPRAZOLE 40 MG TABLET PO SCH (06:02)
[2022-10-08] MEDS: LEVOTHYROXINE 100 MCG TAB PO SCH (06:02)
[2022-10-08] MEDS: METOPROLOL SUCCINATE (ER) 25 MG TAB.ER.24H PO SCH (08:24)
[2022-10-08] MEDS: ISOSORBIDE MONONITRATE ER 60 MG TAB.ER.24H PO SCH (08:24)
[2022-10-08] MEDS: ATORVASTATIN 80 MG TAB PO SCH (08:24)
[2022-10-08] MEDS: hydroCHLOROthiazide 25 MG TAB PO SCH (08:24)
[2022-10-08] MEDS: RANOLAZINE 500 MG TAB.ER.12H PO SCH (08:24)
[2022-10-08] MEDS: lisinopriL 20 MG TAB PO SCH (08:24)
[2022-10-08] MEDS: CLOPIDOGREL 75 MG TAB PO SCH (08:24)
[2022-10-08] MEDS ORDERED: ASPIRIN 81 MG PO SCH (09:00)
[2022-10-08] MEDS ORDERED: ASPIRIN 325 MG TAB PO SCH (09:00)
[2022-10-08 09:34] LABS: Chol/HDL Ratio 2.54 Ratio; LDL Cholesterol,Calculated 51.5 mg/dL (0.0-131.0); VLDL Calculation 18.32 mg/dL (5.00-40.00)
[2022-10-08] MEDS ORDERED: ASPIRIN 81 MG PO STA (09:45)
[2022-10-08] MEDS ORDERED: ALPRAZolam 0.25 MG TAB PO PRN (09:45)
[2022-10-08] MEDS ORDERED: ALPRAZolam 0.5 MG TAB PO PRN (09:45)
[2022-10-08] MEDS ORDERED: SODIUM CHLORIDE 0.9% 1,000 ML in EMPTY BAG 1 BAG IV SCH (09:45)
[2022-10-08] MEDS ORDERED: NITROGLYCERIN SL TABS 0.4 MG TAB SUBLINGUAL PRN (09:45)
[2022-10-08] MEDS ORDERED: ATORVASTATIN 80 MG TAB PO STA (09:45)
--- NOTE | 2022-10-08 09:51 | P.PN ---
Subjective HISTORY OF PRESENT ILLNESS: This is a 81-year-old male with a past medical history significant for hypertension, hyperlipidemia, nicotine dependence, and coronary artery disease with previous stenting of the RCA with multiple layers of stents. Patient follows in the office with Dr. Guillory. We have been asked to see the patient in consultation for chest pain. Patient examined at the bedside. Patient states he was at home when he rolled over in his bed and developed back on the left side of his chest. He states that this concerned him so he got out of bed and took his blood pressure and his systolic blood pressure was found to be 213. He states that he took 3 nitro at home. The patient was recently seen in the offic e by Dr. Goncalves and his dose of Zestril and Imdur were both increased. The patient also reports that he had a stress test done earlier this week in the office. However results are currently not available. * EKG reveals sinus mechanism with no signs of acute ischemia * Chest xray negative for acute process * Current home cardiac medications include lisinopril 10 mg daily, Ranexa 500 mg twice a day, metoprolol succinate 25 mg daily, Imdur 60 mg twice a day, Plavix 75 mg daily, and Lipitor 80 mg daily * Most recent echocardiogram obtained in July 2022 revealed normal EF, mild AR, aortic dilatation of 3.9 cm. * Cardiac catheterization history: July 2022 revealing subtotally occluded RCA with in-stent occlusion. [id number] disease involving the left coronary system. Patient underwent stenting of the distal RCA and angioplasty of the mid RCA. 10/08/2022 Patient examined this morning at the bedside. Patient denies chest pain or pressure. Denies SOB. Blood pressure has improved since making adjustments to his regimen. Patient had a Lexiscan stress test performed in the office earlier this week which revealed possible ischemia in the inferior region. PHYSICAL EXAM: VITAL SIGNS: Reviewed. GENERAL: Well-developed in no acute distress. HEENT: Head is normocephalic. Pupils are equal, round. Sclerae anicteric. Mucous membranes of the mouth are moist. Neck supple. No JVD or thyromegaly LUNGS: Respirations even and unlabored. Lungs essentially clear to auscultation bilaterally. HEART: Regular rate and rhythm. S1 and S2 heard. ABDOMEN: Soft. Nondistended. Nontender. EXTREMITIES: Normal range of motion. No clubbing or cyanosis. Peripheral pulses intact. No lower extremity edema NEUROLOGIC: Awake and alert. Oriented x 3. ASSESSMENT: Chest pain, troponins negative 3 Hypertension, uncontrolled Coronary artery disease with previous stenting of RCA with multiple layers of stents Abnormal outpatient Lexiscan stress test revealing possible ischemia in inferior region Hyperlipidemia Nicotine dependence PLAN: Continue current cardiac medications Continue to monitor blood pressure Dr. Guillory discussed outpatient Lexiscan stress test with patient who would like to proceed with cardiac catheterization Patient to undergo cardiac catheterization today with Dr. Guillory Further recommendations pending patient course Nurse practitioner note has been reviewed by physician. Signing provider agrees with the documented findings, assessment, and plan of care. Objective - Vital Signs Vital signs: Vital Signs Temp 98.1 F 10/08/22 02:06 Pulse 54 L 10/08/22 02:06 Resp 16 10/08/22 02:06 BP 123/62 10/08/22 02:06 Pulse Ox 97 10/08/22 08:45 FiO2 21 10/08/22 08:45 Intake & Output 10/07/22 10/08/22 10/08/22 18:59 06:59 18:59 Intake Total 462 Balance 462 Weight 71.668 kg Intake: Oral 462 Other: Voiding Method Toilet Toilet # Voids 1 2 - Labs CBC & Chem 7: 10/07/22 00:13 10/07/22 00:13 Labs: Abnormal Lab Results - Last 24 Hours (Table) 10/07/22 Range/Units 00:13 TSH 0.367 L (0.465-4.680) mIU/L
[2022-10-08] MEDS ORDERED: IV FLUID CONTINUATION 1,000 ML IV ONE (12:00)
[2022-10-08] MEDS ORDERED: LIDOCAINE 1% INJ 10MG/ML (20 ML MDV) SQ ONE (12:24)
[2022-10-08] MEDS ORDERED: MIDAZOLAM 2 MG/2 ML VIAL IVP ONE (12:24)
[2022-10-08] MEDS ORDERED: VERAPAMIL SYRINGE (5 MG/10 ML) INTRAARTER ONE (12:26)
[2022-10-08] MEDS ORDERED: HEPARIN SODIUM 1,000 UN/ML (10ML VL) IV ONE (12:29)
[2022-10-08] MEDS ORDERED: IOPAMIDOL-370 100ML BTL INJ ONE (12:45)
[2022-10-08] MEDS ORDERED: RX INFO: IV CONTRAST WAS GIVEN 1 EACH MISC MISCELLANE PRN (12:56)
[2022-10-08] MEDS ORDERED: SODIUM CHLORIDE 0.9% 1,000 ML IV SCH (13:00)
[2022-10-08 15:25] VITALS: RESP 12; TEMP 97.5
[2022-10-08 17:04] VITALS: BP 145/70; PULSE 49
--- NOTE | 2022-10-08 18:34 | P.PCN ---
Date of Procedure: 10/08/22 Operative Findings: CARDIAC CATHETERIZATION PERFORMING PHYSICIAN: Tyree Guillory MD, RPVI PROCEDURE PERFORMED: 1. Selective right and left coronary angiogram 2. Left heart catheterization INDICATION: Chest discomfort concerning for unstable angina in this 81-year-old gentleman who is known to have CAD with prior stenting of the right coronary artery with multiple layers of stent in the mid RCA. COMPLICATION: None APPROACH: Right radial artery LEVEL OF SEDATION: Moderate with a sedation length of 20 minutes PROCEDURE DESCRIPTION: After obtaining an informed consent, the patient was brought to cardiac medical laboratory specialist. Local anesthesia was performed using lidocaine subcutaneously. The right radial artery was cannulated using Seldinger technique, the guidewire passed easily, following that we advanced a 5-Moroccan sheath dilator assembly, the wire and dilator were removed and sheath was flushed. Following that, 2 mg of verapamil along with 5000 unit heparin were given. Selective right and left coronary angiogram using a 6-Moroccan JR4 and JL 3.5 catheters. Following that we did left heart catheterization using 6-Moroccan pigtail catheter. The procedure was completed there was no complication. SELECTIVE CORONARY ANGIOGRAM: The right coronary artery: Large caliber vessel and a dominant vessel. The RCA is occluded which seems to be in a stent occlusion. The RCA fills by collateral from the left coronary system Left main: Is angiographically normal. Bifurcates into an LCx and LAD The left circumflex: Large caliber vessel nondominant vessel. The LCx appeared to have mild disease only. The left anterior descending artery: Large caliber vessel. The proximal LAD appeared to have mild disease only and gives rises into the first and second diagonal branches both appear to have mild disease only. The mid LAD and distal LAD appears to have mild disease only. HEMODYNAMICS: The LVEDP was about 12 mmHg was no significant gradient across aortic valve CONCLUSION: 1. Occluded mid RCA with in-stent occlusion. Please note that the patient does have multiple layers of stents in the mid right coronary artery. The RCA fills by contralateral collaterals 2. Mild nonobstructive disease involving the left coronary system POSTPROCEDURE MANAGEMENT: I recommended at this point medical treatment. The option for percutaneous revascularization of the right coronary artery are limited giving the multiple layers of stent in the midright coronary artery. If he remains symptomatic in spite of maximize medical treatment he might benefit from single vessel bypass to the PDA branch of the right coronary artery. This plan was discussed with the patient and his son in details.
[2022-10-09] MEDS ORDERED: HEPARIN SODIUM,PORCINE (1 ML) 2,500 UNIT in SODIUM CHLORIDE 0.9% 250 ML IRRIGATION PRN (07:00)
[2022-10-09] MEDS ORDERED: HEPARIN SODIUM,PORCINE 10,000 UNIT in SODIUM CHLORIDE 0.9% 1,000 ML IRRIGATION PRN (07:00)
--- NOTE | 2022-10-10 10:46 | P.DS ---
Providers Date of admission: 10/08/22 12:15 Expected date of discharge: 10/08/22 Attending physician: Mirtha Valdez Consults: 10/07/22 02:52 Consult Physician Urgent Consulting Provider: Cristian Meade Consult Reason/Comments: chest pain Do you want consulting provider notified?: Yes Primary care physician: Stated None Hospital Course: 81-year-old male with medical history of coronary artery disease with prior cardiac stenting patient has a total of 7 stents most most recently placed in 2019. Patient is a former smoker. He lives in [place] have the year and does not follow with a PCP in [place]. He does see cardiology. Comes in to the ER with complaints of chest pain and high blood pressure. Chest pain was reported as pressure like sensation on the left anterior chest wall with radiation down the left arm. States he was sleeping and rolled over when the chest pain started. At that time his blood pressure was in the 200s systolic. He took a total of 3 SL nitro at home and came in for evaluation. Currently denying chest pain, denies shortness of breath. Denies lightheadedness, dizziness, denies palpitations. He had no associated symptoms at the onset of the chest pain. Denies any diaphoresis, no recent illness. He had an outpatient stress test done a few days ago, cardiology is obtaining reports. Initial EKG showing sinus bradycardia with occasional supraventricular premature complexes possible lateral myocardial infarction with borderline ECG heart rate of 57. Chest x-ray showing no acute abnormality. Initial blood work showing a white count of 6.8, electrolytes are essentially unremarkable with Glucose is mildly elevated at 115. Troponin level was negative 3. He is admitted to the hospital under medicine with a consult placed to cardiology services. At the time of my evaluation his chest pain is resolved. Chest pain rule out ACS with outpatient stress test a few days ago, reports are being obtained History of coronary artery disease with prior PCI patient has total of 7 stents he is maintained on aspirin/plavix outpatient Hypertension, uncontrolled Nicotine dependence Hyperlipidemia GI prophylaxis Full Code Plan Cardiology consultation, reports being obtained from office Medications have been adjusted, lisinopril and ranexa have been increased, hctz added for improved blood pressure control Monitor overnight Possible D/C home in the next 24 to 48 hrs pending cardiology recommendations. Patient is being discharged home in a stable condition Patient Condition at Discharge: Fair Plan - Discharge Summary Discharge Rx Participant: Yes New Discharge Prescriptions: New hydroCHLOROthiazide [Hydrodiuril] 25 mg PO DAILY #30 tab Ranolazine [Ranexa] 1,000 mg PO Q12HR 30 Days #120 tab Aspirin 81 mg PO DAILY tab lisinopriL [Zestril] 20 mg PO DAILY 30 Days #30 tab Continue ALPRAZolam [Xanax] 0.25 mg PO HS Nitroglycerin Sl Tabs [Nitrostat] 0.4 mg SUBLINGUAL Q5M PRN #25 tab PRN Reason: Chest Pain Levothyroxine Sodium [Synthroid] 100 mcg PO DAILY Atorvastatin [Lipitor] 80 mg PO DAILY #90 tab Clopidogrel [Plavix] 75 mg PO DAILY #90 tab Metoprolol Succinate (ER) [Toprol XL] 25 mg PO DAILY #90 tab Pantoprazole Sodium [Protonix] 40 mg PO DAILY Isosorbide Mononitrate ER [Imdur] 60 mg PO BID Discontinued Ranolazine [Ranexa] 500 mg PO Q12HR #180 tab lisinopriL [Zestril] 10 mg PO DAILY Discharge Medication List ALPRAZolam [Xanax] 0.25 mg PO HS 07/25/22 [History] Levothyroxine Sodium [Synthroid] 100 mcg PO DAILY 07/25/22 [History] Atorvastatin [Lipitor] 80 mg PO DAILY #90 tab 07/27/22 [Rx] Clopidogrel [Plavix] 75 mg PO DAILY #90 tab 07/27/22 [Rx] Metoprolol Succinate (ER) [Toprol XL] 25 mg PO DAILY #90 tab 07/27/22 [Rx] Nitroglycerin Sl Tabs [Nitrostat] 0.4 mg SUBLINGUAL Q5M PRN #25 tab 07/27/22 [Rx] Pantoprazole Sodium [Protonix] 40 mg PO DAILY 09/03/22 [History] Isosorbide Mononitrate ER [Imdur] 60 mg PO BID 10/07/22 [History] Aspirin 81 mg PO DAILY tab 10/08/22 [Rx] Ranolazine [Ranexa] 1,000 mg PO Q12HR 30 Days #120 tab 10/08/22 [Rx] hydroCHLOROthiazide [Hydrodiuril] 25 mg PO DAILY #30 tab 10/08/22 [Rx] lisinopriL [Zestril] 20 mg PO DAILY 30 Days #30 tab 10/08/22 [Rx] Follow up Appointment(s)/Referral(s): Tyree Guillory MD [STAFF PHYSICIAN] - 10/13/22 3:00 pm None,Stated [Primary Care Provider] - 1-2 days Patient Instructions/Handouts: Heart Catheterization (DC) Discharge Disposition: HOME SELF-CARE
== END 2022-10-08 19:01 | disposition home or self-care (01) | DRG 287 ==
LOC: EC 23:54 → 6NMEDSUR 10-07 02:52 → OBSVTOIN 10-08 12:15
PROVIDERS: ADMIT Hospitalist; ATTEND Hospitalist
PROC: B2111ZZ Fluoroscopy of Multiple Coronary Arteries using Low Osmolar Contrast (ICD-10-PCS; 2022-10-08)
PROC: 4A023N7 Measurement of Cardiac Sampling and Pressure, Left Heart, Percutaneous Approach (ICD-10-PCS; principal; 2022-10-08 11:05)
DX: T82.855A Stenosis of coronary artery stent, initial encounter (principal); I25.110 Atherosclerotic heart disease of native coronary artery with unstable angina pectoris; I10 Essential (primary) hypertension; I77.819 Aortic ectasia, unspecified site; I35.0 Nonrheumatic aortic (valve) stenosis; I49.1 Atrial premature depolarization; E78.5 Hyperlipidemia, unspecified; Y71.1 Therapeutic (nonsurgical) and rehabilitative cardiovascular devices associated with adverse incidents; Z95.5 Presence of coronary angioplasty implant and graft; Z87.891 Personal history of nicotine dependence; Z79.899 Other long term (current) drug therapy; Z79.890 Hormone replacement therapy; Z79.02 Long term (current) use of antithrombotics/antiplatelets; Z88.5 Allergy status to narcotic agent; Z88.6 Allergy status to analgesic agent
CPT/HCPCS: 36415; 71046; 80053; 80061; 83735; 84439; 84443; 84484; 85025; 85610; 85730; 93005; 94760; 99285